=== PATIENT | female | born 1985 | race Caucasian/White ===

== ENCOUNTER → 2017-06-18 15:46 | Outpatient (CLI) | payer OTHER, SELFPAY ==
[2017-06-23 14:43] LABS: HPV Reflexed? NOT INDICATED
== END ==
PROVIDERS: Visit Provider Obstetrics & Gynecology
DX: R87.612 Low grade squamous intraepithelial lesion on cytologic smear of cervix (LGSIL) (principal)
CPT/HCPCS: 88175; G0145

== ENCOUNTER → 2017-06-24 12:06 | Outpatient (CLI) | payer OTHER, SELFPAY ==
--- NOTE | 2017-06-24 12:09 | HPBI_ITS ---
MAMMOGRAPHY - BILATERAL DIAGNOSTIC REASON FOR EXAM: Female, 31 years old. Left axillary lump. PERTINENT HISTORY: Non-contributory. TECHNIQUE: Digital bilateral breast ronal (3D mammographic acquisition) in the CC and MLO projections. 2-D mediolateral oblique (MLO) and craniocaudad (CC) views of both breasts were obtained. An exaggerated craniocaudad view of the left breast was obtained as well. CAD: Full Field Digital Mammography with Computer Added Detection was performed. COMPARISON: None. Baseline examination. FINDINGS: Breast Composition: There are scattered areas of fibroglandular density. Questionable 1 cm nodular density in the deep lateral portion of the left breast as seen on the craniocaudad view. No other significant abnormalities are identified. HPBI/DIAG MAMM W/CAD, BILAT IMPRESSION: Questionable nodular density seen in the deep lateral aspect of the left breast as described. This is only seen on the craniocaudad view. Correlation with ultrasound is recommended. ASSESSMENT CATEGORY: BIRADS Category 0: Incomplete. Need additional imaging evaluation. A letter regarding these results will be sent to the patient by the facility within 30 days. Approximately 10% of breast cancers are not detected by mammography. A normal mammogram should not delay biopsy of a clinically suspicious abnormality. Electronically Signed: Yifan Smith MD at 13:41 EST Tel [phone], Service support ,
--- NOTE | 2017-06-24 12:10 | US_ITS ---
STUDY: ULTRASOUND BREAST - LEFT REASON FOR EXAM: Female, 31 years old. Left axillary mass. TECHNIQUE: Axial and longitudinal images of the LEFT breast were performed with a high resolution ultrasound transducer. COMPARISON: Comparison is made with prior mammogram done earlier in the day. FINDINGS: LEFT Breast: No abnormality is seen at the palpable site. There are 2 lymph nodes seen inferior to the palpable area. The larger lymph node measures 2.3 cm x 2 sides by 0.7 cm. This appears to have a benign ultrasound architecture. US/Breast Limited Unilateral IMPRESSION: 2 lymph nodes are seen in the left axillary region as described. The larger measures 2.3 cm x 2 cm by 0.7 cm. ASSESSMENT CATEGORY: BIRADS Category 2: Benign. A letter regarding these results will be sent to the patient by the facility within 30 days. Electronically Signed: Yifan Smith MD at 15:00 EST Tel [phone], Service support ,
== END ==
PROVIDERS: Visit Provider Obstetrics & Gynecology
DX: N63.20 Unspecified lump in the left breast, unspecified quadrant (principal)
CPT/HCPCS: 76642; 77062; 77066; G0279

== ENCOUNTER → 2017-12-04 11:00 | Outpatient (CLI) | payer OTHER, SELFPAY ==
--- NOTE | 2017-12-04 11:04 | US_ITS ---
STUDY: ULTRASOUND BREAST - LEFT REASON FOR EXAM: Female, 31 years old. Nodular density TECHNIQUE: Axial and longitudinal images of the LEFT breast were performed with a high resolution ultrasound transducer. COMPARISON: FINDINGS: LEFT Breast: There is a simple 0.4 x 0.4 x 0.5 cm cyst at 3:00, 10 cm from the nipple. No suspicious shadowing solid lesion, architectural distortion or clustered calcifications. US/Breast Limited Unilateral IMPRESSION: Simple subcentimeter cyst. No suspicious sonographic findings ASSESSMENT CATEGORY: BIRADS Category 2: Benign. A letter regarding these results will be sent to the patient by the facility within 30 days. Electronically Signed: Eddie Jara MD at 12:41 EDT , Service support ,
== END ==
PROVIDERS: Visit Provider Surgery
DX: R92.8 Other abnormal and inconclusive findings on diagnostic imaging of breast (principal)
CPT/HCPCS: 76642

== ENCOUNTER → 2018-05-18 08:53 | Outpatient (CLI) | payer OTHER, SELFPAY ==
--- NOTE | 2018-05-18 08:56 | US_ITS ---
STUDY: ULTRASOUND BREAST - LEFT REASON FOR EXAM: Female, 32 years old. Palpable axillary lump left breast. TECHNIQUE: Axial and longitudinal images of the LEFT breast were performed with a high resolution ultrasound transducer. COMPARISON: Comparison is made with prior study dated December 04, 2017 and prior mammogram done earlier in the day. FINDINGS: LEFT Breast: There is a 4 mm x 5 mm x 5 mm cyst at the 3:00 position breast at 10 cm from the nipple. This is unchanged. US/Breast Limited Unilateral IMPRESSION: Stable examination. ASSESSMENT CATEGORY: BIRADS Category 2: Benign. A letter regarding these results will be sent to the patient by the facility within 30 days. Electronically Signed: Yifan Smith MD at 10:56 EST Tel [phone], Service support ,
--- NOTE | 2018-05-18 08:57 | BI_ITS ---
MAMMOGRAPHY - BILATERAL DIAGNOSTIC REASON FOR EXAM: Female, 32 years old. Left axillary lump. PERTINENT HISTORY: Non-contributory. TECHNIQUE: Digital bilateral breast ronal (3D mammographic acquisition) in the CC and MLO projections. 2-D mediolateral oblique (MLO) and craniocaudad (CC) views of both breasts were obtained. CAD: Full Field Digital Mammography with Computer Added Detection was performed. COMPARISON: Comparison is made with prior mammogram dated June 24, 2017. FINDINGS: Breast Composition: There are scattered areas of fibroglandular density. There are no dominant masses or suspicious calcifications. No other significant abnormalities are identified. There has been no significant change since the prior study. BI/DIAG MAMM W/CAD, BILAT IMPRESSION: Stable bilateral diagnostic mammogram. With the patient's history of a palpable abnormality in the left axillary region, correlation with ultrasound is recommended. ASSESSMENT CATEGORY: BIRADS Category 0: Incomplete. Need additional imaging evaluation. A letter regarding these results will be sent to the patient by the facility within 30 days. Approximately 10% of breast cancers are not detected by mammography. A normal mammogram should not delay biopsy of a clinically suspicious abnormality. Electronically Signed: Yifan Smith MD at 10:58 EST Tel [phone], Service support ,
== END ==
PROVIDERS: Referring Provider Surgery; Visit Provider Surgery
DX: N60.02 Solitary cyst of left breast (principal)
CPT/HCPCS: 76642; 77062; 77066; G0279

== ENCOUNTER 2021-02-04 12:17 | Emergency (ER) | payer OTHER, SELFPAY ==
[2021-02-04 12:18] VITALS: BP 148/101; PULSE 96; RESP 20; TEMP 37.5; O2SAT 96; BMI 38.9
[2021-02-04 12:23] VITALS: O2SAT 96
[2021-02-04 13:25] VITALS: PULSE 82; RESP 21
[2021-02-04] MEDS: dexAMETHasone 4 MG Tablet 6 MG PO (13:25)
[2021-02-04 13:32] VITALS: O2SAT 96
--- NOTE | 2021-02-04 13:37 | EDS_ITS ---
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 She states that she has had 5 days now of fever congestion cough and shortness of breath. She went to an urgent care where they did an outpatient Covid swab a chest x-ray and placed her on antibiotics. She states she does not have a history of lung pathology or need for supplemental oxygen. She states today she awoke and felt increased shortness of breath and therefore comes to the hospital for evaluation. [facility] Medical History (Updated 02/04/21 @ 13:[address] Justice Emmanuel, DO) Mass of left axilla Home Medications albuterol sulfate [Ventolin HFA] 2 puff INHALATION Q4H PRN PRN #8.5 g 02/04/21 [Rx Last Taken Unknown] dexamethasone [Decadron] 6 mg PO DAILY #10 tab 02/04/21 [Rx Last Taken Unknown] doxycycline hyclate 100 mg PO BID 02/04/21 [History Last Taken Unknown] promethazine-codeine 5 ml PO Q6H PRN #140 ml 02/04/21 [Rx Last Taken Unknown] Allergy/AdvReac Type Severity Reaction Status Date / Time penicillin G Allergy Intermediate Hives Verified 02/04/21 12:18 Family History Father Hypertension Grandmother Breast cancer Surgical History History of History of tonsillectomy Social History (Updated 05/26/18 @ 09:[address] Pete Urias MD) Smoking Status: Never smoker alcohol intake: never substance use type: does not use ROS ROS ED Constitutional Constitutional ED: Reports chills and fever(s) ENT ENT ED: Reports rhinorrhea and sore throat Cardiovascular Cardiovascular: Denies chest pain Respiratory/Chest Respiratory/Chest: Reports cough and dyspnea Gastrointestinal Gastrointestinal: Denies abdominal pain, diarrhea, nausea or vomiting Genitourinary Genitourinary ED: Denies dysuria Musculoskeletal Musculoskeletal: Reports myalgias Integumentary Denies rash Neurologic Neurologic: Denies headache(s) Hematologic/Lymphatic Hematologic/Lymphatic: Denies easy bleeding or easy bruising EXAM Physical Exam Const Vital Signs: 02/04/21 12:18 02/04/21 13:25 02/04/21 13:32 Temperature 99.5 F H Temperature Source Oral Pulse Rate 96 82 Respiratory Rate 20 H 21 H Respiratory Effort Normal Non-Labored Respiratory Depth Normal Respiratory Pattern Tachypnea Normal Blood Pressure 148/101 H Blood Pressure Mean 116 Pulse Ox 96 Oxygen Delivery Method Room Air Room Air Positive well nourished and well developed General Appearance ED: well developed HEENT Reports moist mucous membranes HEENT Narrative: Cobblestoning the posterior pharynx consistent with sinus drainage but no airway edema or compromise. Eyes PERRL and EOMs intact bilaterally Neck supple, no meningeal signs and no JVD Neck Narrative: Positive anterior cervical lymphadenopathy but no crepitance palpated Resp Resp Narrative: Breath sounds are diminished throughout with slight accessory muscle use. There is also diffuse expiratory wheezes noted but no nasal flaring or retractions Cardio regular rate and regular rhythm GI non-tender and non-distended Auscultation: normoactive bowel sounds Palpation: soft Extremity normal to inspection Extremity Narrative: No asymmetric edema no pitting edema negative Homans' sign bilaterally Neuro oriented x3 and CN's II-XII intact bilaterally Sensorium / Orientation: alert Psych mental status grossly normal Skin no rashes or lesions noted Lesions: no lesions Rashes: no rashes MDM MDM MDM Narrative Medical decision making narrative: Patient presented the ER with a low-grade temperature but otherwise was satting in the mid 90s on room air and had no overt signs of respiratory distress. She is already had a Covid swab obtained as well as an outpatient chest x-ray and currently is on antibiotic. Therefore this time I feel there is no need for repeat Covid testing or chest x-ray. Patient was given albuterol inhaler and Decadron secondary to concern that her symptoms are from Covid. On reevaluation she does report feeling better and remains with a pulse ox in the mid 90s. Therefore patient will be discharged at this time with symptomatic medications as she does not have physical exam findings or vital sign derangements to suggest respiratory failure Discharge Plan Triage Chief Complaint: Shortness of Breath ED Provider: Justice Emmanuel Dx/Rx/DC Orders Clinical Impression: Viral upper respiratory illness, Dyspnea Instructions: Coronavirus Disease 2019 (COVID-19): Caring for Yourself or Others, ED Dyspnea Prescriptions: New albuterol sulfate [Ventolin HFA] 90 mcg/actuation HFA aerosol inhaler 2 puff inhalation Q4H PRN PRN (Reason: Wheezing) Qty: 8.5 RF: 0 dexamethasone [Decadron] 6 mg tablet 6 mg PO DAILY Qty: 10 RF: 0 promethazine-codeine 6.25-10 mg/5 mL syrup 5 ml PO Q6H PRN (Reason: cough) Qty: 140 RF: 0 No Action doxycycline hyclate 100 mg tablet 100 mg PO BID RF: 0 Primary Care Provider: Care Physician,No Primary Referrals: Marilyn Means MD [STAFF PHYSICIAN] - 3-5 Days if not improving Care Physician,No Primary [Primary Care Provider] - Disposition Disposition: Home, Self Care
== END 2021-02-04 14:12 | disposition home or self-care (01) ==
PROVIDERS: Emergency Provider Emergency Medicine
DX: J06.9 Acute upper respiratory infection, unspecified (principal)
CPT/HCPCS: 94640; 99283

== ENCOUNTER 2021-06-07 20:34 | Emergency (ER) | payer OTHER, SELFPAY ==
[2021-06-07 20:34] VITALS: BP 212/117; PULSE 99; RESP 18; TEMP 36.1; O2SAT 100; BMI 41.1
[2021-06-07 21:07] VITALS: BP 157/104; PULSE 98; RESP 18; O2SAT 98
--- NOTE | 2021-06-07 21:16 | EKG12_ITS ---
Test Reason : CP Blood Pressure : / mmHG Vent. Rate : 075 BPM Atrial Rate : 075 BPM P-R Int : 148 ms QRS Dur : 082 ms QT Int : 418 ms P-R-T Axes : 046 026 043 degrees QTc Int : 466 ms Sinus rhythm with marked sinus arrhythmia Otherwise normal ECG Confirmed by ZARA MCKOY, MOE ([id number]), tape editor SAMI AL ([id number]) on 06/11/2021 10:50:06 AM Referred By: REJI Confirmed By:MOE ZUÑIGA MD
--- NOTE | 2021-06-07 21:18 | ED.RN ---
NO OLD EKGS ON FILE
--- NOTE | 2021-06-07 21:20 | RAD_ITS ---
INDICATION: chest pain EXAMINATION/TECHNIQUE: X-RAY - XR Chest 1 View COMPARISON: None. FINDINGS: LINES/DEVICES: None. LUNGS: Symmetric normal lung volumes. No airspace opacity or abnormal interstitial pattern. No nodule or mass. No pleural effusion or pneumothorax. MEDIASTINUM AND CARDIOVASCULAR STRUCTURES: Normal size and contour of the cardiomediastinal silhouette. No evidence of pulmonary vascular congestion. BONES AND SOFT TISSUES: No abnormality within limits of the exam. RAD/Chest 1 View (Portable) IMPRESSION: 1. No radiographic evidence of acute cardiopulmonary disease. Electronically Signed: Ermias Kennedy DO at 21:52 EST ,
--- NOTE | 2021-06-07 21:27 | CM.ED ---
W Note Referral Source: Case Find Referral Reason: No PCP SW met with patient and provided patient with [facility] Healthcare Provider List. SW encouraged patient to obtain PCP for regular ongoing medical treatment. Plan:[facility] Healthcare Provider List provided to patient Nancy SEGURA
[2021-06-07 21:40] LABS: Absolute Lymphocyte Count 3.27 X10^3/uL (0.83-4.51); Basophil# 0.06 X10^3/uL; Basophil% 0.6 % (0-1); Eosinophils% 1.9 % (0-5); Hematocrit 42.7 % (37-47); Hemoglobin 14.7 g/dL (12.0-15.0); Lymphocyte # 3.27 X10^3/ul (0.83-4.51); Lymphocyte % 31.8 % (19-41); Mean Corp Hgb Conc 34.4 g/dL (32-36); Mean Corpuscular Hgb 29.6 pg (27.0-32.0); Mean Corpuscular Volume 86.1 fL (81-99); Mean Platelet Vol. 9.6 fl (6.2-12.0); Monocyte# 0.71 X10^3/uL; Monocyte% 6.9 % (0-10); NRBC Flagged by Analyzer 0 % (0-5); Neutrophil % 58.4 % (47-70); Platelet Count 221 K/mm3 (150-450); RBC Distribution Width CV 12.8 % (11.6-14.6); RBC Distribution Width SD 39.9 fl (35.1-43.9); Red Blood Count 4.96 M/mm3 (4.2-5.4); White Blood Count 10.3 K/mm3 (4.4-11.0)
--- NOTE | 2021-06-07 21:52 | EDS_ITS ---
HPI History of Present Illness Chief Complaint: Hypertension Narrative Narrative: 35-year-old female with history of high blood pressure after about 9 years ago presenting with high blood pressure and feeling generally unwell. She states she had some [employer] [place] pizza earlier today and after that she started to have dyspepsia and burning. She describes some pressure as well. She states that she felt a little bit lightheaded after this. This lasted for about an hour. She took aspirin at that time and then aspirin again before coming to the emergency room. She denies any personal cardiac history. She states that the urgent care told her she had asthma when she was diagnosed with COVID-19 and put her on antibiotics and steroids, however she has no history of asthma. This was somewhat distantly however the patient notes that her blood pressures been up a little bit since then and she has never quite recovered. She has not made contact with a primary care provider and she utilizes the urgent care periodically as needed. Patient does relate that she has a family history of cardiac disease and 2 relatives with MIs in their 40s. [facility] Medical History Mass of left axilla Home Medications amlodipine 5 mg PO DAILY #60 tab 06/08/21 [Rx Last Taken Unknown] Allergy/AdvReac Type Severity Reaction Status Date / Time penicillin G Allergy Intermediate Hives Verified 06/07/21 20:36 Family History Father Hypertension Grandmother Breast cancer Surgical History History of History of tonsillectomy Social History Smoking Status: Never smoker alcohol intake: never substance use type: does not use ROS ROS ED Constitutional Constitutional ED: Denies chills, fever(s) or sweats Eyes Eyes: Denies blurry vision or change in vision ENT ENT ED: Denies ear pain, rhinorrhea or sore throat Cardiovascular Cardiovascular: Reports chest pain; Denies palpitations or racing heartbeat Respiratory/Chest Respiratory/Chest: Denies cough, dyspnea or sputum Gastrointestinal Gastrointestinal: Denies abdominal pain, constipation, diarrhea or vomiting Genitourinary Genitourinary ED: Denies dysuria, hematuria or urinary frequency Musculoskeletal Musculoskeletal: Denies arthralgias, myalgias or neck pain Integumentary Denies abscess, Abrasions or rash Neurologic Neurologic: Denies headache(s), paresthesias or weakness Psychiatric Psychiatric: Denies anxiety, depression, suicidal ideation or suicidal thoughts Endocrine Endocrinology: Denies polydipsia or polyuria EXAM Physical Exam Const Vital Signs: 06/07/21 20:34 06/07/21 21:07 06/07/21 21:09 Temperature 97 F L Temperature Source Temporal Pulse Rate 99 98 Respiratory Rate 18 18 Respiratory Effort Normal Blood Pressure 212/117 H 157/104 H Blood Pressure Mean 148 121 Pulse Ox 100 98 Oxygen Delivery Method Room Air Oxygen Flow Rate (L/min) 06/07/21 21:21 06/07/21 23:47 Temperature Temperature Source Pulse Rate 81 Respiratory Rate 16 Respiratory Effort Blood Pressure 159/87 H Blood Pressure Mean 111 Pulse Ox 99 Oxygen Delivery Method Room Air Room Air Oxygen Flow Rate (L/min) 98 Positive well nourished and oriented x3 General Appearance ED: Negative for pallor HEENT Reports normocephalic, head/scalp atraumatic and moist mucous membranes Eyes PERRL and EOMs intact bilaterally Neck no lymphadenopathy and supple Chest Wall inspection of chest normal and palpation of chest normal Resp normal respiratory effort and clear to auscultation bilaterally Auscultation: Negative for rales, rhonchi or wheezes Cardio regular rate and regular rhythm GI Palpation: soft Narrative: Deferred Extremity normal to inspection General Extremety ED: Negative for edema or tenderness General Extremity: Negative for edema Neuro oriented x3 and CN's II-XII intact bilaterally Sensorium / Orientation: alert Motor Exam: strength 5/5 throughout Psych mental status grossly normal Attitude: No agitated Skin no rashes or lesions noted and no wounds General Skin Exam: Negative for jaundice or pallor MDM MDM MDM Narrative Medical decision making narrative: Patient presenting with elevated blood pressure and fatigue. Patient states he is having some intermittent chest pain as well. He describes this pressure. EKG on my interpretation shows a sinus rhythm with a ventricular rate of 75 bpm without sign of ischemic change. Chest x-ray on my interpretation shows no acute cardiopulmonary process and radiologist does agree. Patient is PERC negative. Blood work is obtained and CBC and BMP are within normal limits. High-sensitivity troponin is 4 initially. Delta troponin is 4. I feel this does rule out ACS. Serum hCG is negative. On reevaluation the patient's blood pressure has spontaneously improved to 159/87. She currently feels well. I had a long discussion with her about starting medications from the ER and says she does not have follow-up currently scheduled I will start her on amlodipine 5 mg p.o. daily. She is to keep a diary of her blood pressures and monitor this. I told her for the next 5 to 7 days to monitor and see if her blood pressure is improving. If is not significantly improving I counseled her that she can double her amlodipine to 10 mg p.o. daily. I did equal opportunity counselor her that we want to slowly get her blood pressure down over several days and try to get it is close to 120/80 as we can. I did equal opportunity counselor her for blood pressure medicines needs to be doubled and she has low blood pressure she should go back to the initial 5 mg until she follows up with her primary physician. Patient can always understanding well instructions. Patient given first dose of alendronate in the ER. Impression: 1. Hypertension 2. Chest pain noncardiac Lab Data Labs: Laboratory Results - last 24 hr 06/07/21 06/07/21 06/07/21 21:20 21:20 21:20 WBC 10.3 RBC 4.96 Hgb 14.7 Hct 42.7 MCV 86.1 MCH 29.6 MCHC 34.4 RDW Std Deviation 39.9 RDW Coeff of Becky 12.8 Plt Count 221 MPV 9.6 Immature Gran % (Auto) 0.400 Neut % (Auto) 58.4 Lymph % (Auto) 31.8 Jessamine % (Auto) 6.9 Eos % (Auto) 1.9 Baso % (Auto) 0.6 Absolute Neuts (auto) 6.0 Absolute Lymphs (auto) 3.27 Nucleated RBC % 0 Sodium 139 Potassium 3.3 L Chloride 104 Carbon Dioxide 27.0 Anion Gap 8 BUN 10 Creatinine 0.74 Estim Creat Clear Calc 93.37 Est GFR (MDRD) Af Amer 117 Est GFR (MDRD) Non-Af 96 BUN/Creatinine Ratio 13.6 Glucose 90 Calcium 9.5 Troponin I High Sens 4 Serum , Qual NEGATIVE 06/07/21 23:15 WBC RBC Hgb Hct MCV MCH MCHC RDW Std Deviation RDW Coeff of Becky Plt Count MPV Immature Gran % (Auto) Neut % (Auto) Lymph % (Auto) Jessamine % (Auto) Eos % (Auto) Baso % (Auto) Absolute Neuts (auto) Absolute Lymphs (auto) Nucleated RBC % Sodium Potassium Chloride Carbon Dioxide Anion Gap BUN Creatinine Estim Creat Clear Calc Est GFR (MDRD) Af Amer Est GFR (MDRD) Non-Af BUN/Creatinine Ratio Glucose Calcium Troponin I High Sens 4 Serum , Qual Radiography Diagnostic Testing: Clinical Impression(s) from Imaging Studies Chest X-Ray 06/07/21 21:20 IMPRESSION: 1. No radiographic evidence of acute cardiopulmonary disease. Electronically Signed: Ermias Kennedy DO at 21:52 EST , Discharge Plan Triage Chief Complaint: Hypertension ED Provider: Lavell Cardoso Dx/Rx/DC Orders Instructions: ED Hypertension New Begin Treatment Prescriptions: New amlodipine 5 mg tablet 5 mg PO DAILY Qty: 60 RF: 0 Primary Care Provider: Care Physician,No Primary Referrals: Fast,Minerva, DO [NON-STAFF] - As soon as possible Care Physician,No Primary [Primary Care Provider] - Disposition Disposition: Home, Self Care
[2021-06-07 21:57] LABS: Internal QC Validated? YES +Cl - CLEAR BKGD; Pregnancy, Serum, hCG Quali. NEGATIVE Negative
[2021-06-07 22:01] LABS: Anion Gap 8 (5-15); BUN 10 mg/dL (7-18); BUN/Creat Ratio 13.6 RATIO (10-20); Calcium,Total 9.5 mg/dL (8.5-10.1); Chloride 104 mmol/L (98-107); Creatinine, Serum 0.74 mg/dL (0.55-1.02); EST Glomerular Filtration Rate 96 mL/min (>60); Est Glom Filt Rate - Afr Amer 117 mL/min (>60); Estimated Creatinine Clearance 93.37 ml/min; Glucose 90 mg/dL (74-106); Potassium 3.3 mmol/L (3.5-5.1); Sodium Level 139 mmol/L (136-145); Troponin-I HS 4 pg/mL (3.0-54.0)
[2021-06-07 23:47] VITALS: BP 159/87; PULSE 81; RESP 16; O2SAT 99
[2021-06-07 23:51] LABS: Troponin-I HS 4 pg/mL (3.0-54.0)
[2021-06-08] MEDS: amLODIPine 5 MG Tablet PO (00:07)
[2021-06-08 00:08] VITALS: BP 149/87; PULSE 89; RESP 23; TEMP 36.6; O2SAT 97
--- NOTE | 2021-06-08 13:00 | CASEMGMT ---
RN GAVINO ED follow-up RN CM placed call to patient's telephone number listed on demographics with no answer. Voicemail left with call back information requesting return call. BRIGETTE Cardoza CM
== END 2021-06-08 00:10 | disposition home or self-care (01) ==
PROVIDERS: Emergency Provider Student in an Organized Health Care Education/Training Program; Visit Provider Student in an Organized Health Care Education/Training Program
DX: I10 Essential (primary) hypertension (principal); R07.89 Other chest pain
CPT/HCPCS: 71045; 80048; 84484; 84703; 85025; 93005; 99285; A4216

== ENCOUNTER → 2021-09-26 | Outpatient (CLI) | payer OTHER, SELFPAY ==
[2021-09-26 12:40] LABS: Hemoglobin A1c 5.1 % (3.8-5.6)
[2021-09-26 12:51] LABS: Estradiol 49.5 pg/mL; Follicle Stimulating Hormone 5.2 mIU/mL; Prolactin 10.9 ng/mL
[2021-09-27 16:34] LABS: Sex Hormone-binding Globulin 25.5 nmol/L (24.6-122.0)
[2021-10-03 10:29] LABS: 17-Hydroxyprogesterone 12 ng/dL (.)
== END | disposition home or self-care (01) ==
PROVIDERS: Visit Provider Obstetrics & Gynecology
DX: N91.5 Oligomenorrhea, unspecified (principal)
CPT/HCPCS: 36415; 82533; 82627; 82670; 83001; 83002; 83036; 83498; 84146; 84270; 84403; 82626

== ENCOUNTER → 2021-10-02 | Outpatient (CLI) | payer OTHER, SELFPAY ==
[2021-10-02 11:09] LABS: Glucose 75GTT - 30 minutes 134 mg/dL (100-160)
[2021-10-02 11:10] LABS: Glucose 75GTT - 60 minutes 148 mg/dL (100-160)
[2021-10-02 11:19] LABS: Glucose 75GTT - 120 minutes 136 mg/dL (70-140)
[2021-10-02 11:20] LABS: Glucose 75GTT - Fasting 87 mg/dL (70-99)
[2021-10-02 11:28] LABS: Insulin 75GTT - 120 min 135.7 mU/L (Not Estab.)
[2021-10-02 11:30] LABS: Insulin 75GTT - 60 min 141.3 mU/L (Not Estab)
[2021-10-02 11:30] LABS: Insulin 75GTT - 30 MIN 129.7 mU/L (Not Estab.)
[2021-10-02 12:32] LABS: Insulin 75GTT - Fasting 21.3 mU/L (2.6-37.6)
== END | disposition home or self-care (01) ==
LOC: WOBLAB 08:39
PROVIDERS: Visit Provider Obstetrics & Gynecology
DX: N92.6 Irregular menstruation, unspecified (principal); E28.9 Ovarian dysfunction, unspecified
CPT/HCPCS: 36415; 82951; 82952; 83525

== ENCOUNTER → 2022-12-03 | Outpatient (CLI) | payer OTHER, SELFPAY ==
[2022-12-03 12:18] LABS: Absolute Lymphocyte Count 2.53 X10^3/uL (0.83-4.51); Absolute Neutrophil Count 3.5 X10^3/uL (2.0-7.7); Basophil# 0.07 X10^3/uL; Eosinophil# 0.22 X10^3/uL; Eosinophils% 3.2 % (0-5); Hematocrit 44.1 % (37-47); Hemoglobin 13.9 g/dL (12.0-15.0); Lymphocyte # 2.53 X10^3/ul (0.83-4.51); Lymphocyte % 37.2 % (19-41); Mean Corp Hgb Conc 31.5 g/dL (32-36); Mean Corpuscular Volume 88.7 fL (81-99); Mean Platelet Vol. 10.4 fl (6.2-12.0); Monocyte# 0.52 X10^3/uL; Monocyte% 7.6 % (0-10); NRBC Flagged by Analyzer 0 % (0-5); Neutrophil # 3.45 X10^3/uL (2.7-7.7); Neutrophil % 50.9 % (47-70); Platelet Count 264 K/mm3 (150-450); RBC Distribution Width CV 13.2 % (11.6-14.6); RBC Distribution Width SD 42.6 fl (35.1-43.9); Red Blood Count 4.97 M/mm3 (4.2-5.4); White Blood Count 6.8 K/mm3 (4.4-11.0)
[2022-12-03 12:27] LABS: Progesterone Level 1.02 ng/mL (See Comment)
[2022-12-03 12:28] LABS: hCG Titer Quant., Serum < 1 mIU/mL (1-3)
[2022-12-03 12:31] LABS: Hemoglobin A1c 5.2 % (3.8-5.6)
[2022-12-03 12:33] LABS: Estradiol 34.9 pg/mL; Follicle Stimulating Hormone 7.4 mIU/mL; Luteinizing Hormone 4.5 mIU/mL; Prolactin 13.5 ng/mL; T4 Free Direct 0.92 ng/dL (0.76-1.46); Thyroid Stim Hormone (TSH) 1.23 uIU/mL (0.358-3.74)
[2022-12-08 13:07] LABS: Testosterone, % Free 2.71 % (0.50-2.80); Testosterone, Free 1.33 ng/dL (0.10-0.85); Testosterone, Total 49 ng/dL (8-60)
== END | disposition home or self-care (01) ==
PROVIDERS: Visit Provider Nurse Practitioner Women's Health
DX: N97.9 Female infertility, unspecified (principal)
CPT/HCPCS: 36415; 82670; 83001; 83002; 83036; 84144; 84146; 84402; 84403; 84439; 84443; 84702; 85025

== ENCOUNTER → 2025-03-29 | Outpatient (CLI) | payer OTHER, SELFPAY ==
--- OUTSIDE RECORDS SUMMARY | 2025-03-29 07:46 | XMS RPT_ITS | CCD ---
Author Organization [facility] Inform ion Partnership [facility] [place] [facility] Care Team Providers Care [facility] Director Name Role Phone DAVID MORTON DO Attending Unavailable DAVID MORTON DO Primary Care Unavailable DAVID MORTON DO Admitting Unavailable Angelina White Attending Unavailable Care Physician, No Primary Primary Care Unava ilable Unavailable Primary Care Provider Unavailabl e Unavailable Primary Care Provider Unavailaristides e MARILYN SUMMERS Attending Unavailable Allergies Allergy Classification Reported Allergen(s) Allergy Type Date of Onset Reaction(s) Facility (2 sources) Penicillin G Drug Allergy 2 [facility] Work Phone: (1 source) Penicillin Drug Allergy 2 [facility] Repository (5 sources) Penicillins; Translations: [PENICILLINS] Drug Intolerance 1 [facility] Work Phone: Medications Completed/Discontinued Medications Medication Drug Class(es) Dates Sig (Normalized) Sig (Original) amLODIPine 5 mg oral tablet (3 sources) Dihydropyridine Calcium Channel Fauzia Start: 06-08-19 22 End: 04-09-20 23 amLODIPine (NORVASC) 5 mg tablet Take by mouth. 0 06/08/2021 04/09/2023 Discontinued (Other) Comment on above: Take by mouth. clomiPHENE citrate 50 mg oral tablet (1 source) Estrogen Agonist/Antagonist Start: 01-09-20 23 End: 04-09-20 23 CLOMID 50 mg tablet TAKE 1 TABLET BY MOUTH DAILY CYCLE DAY 3-7 0 01/08/2023 04/09/2023 Discontinued (Other) Comment on above: TAKE 1 TABLET BY HERBERTH TH DAILY CYCLE DAY 3-7 letrozole 2.5 mg oral tablet (2 sources) Aromatase Inhibitor Start: 04-09-20 23 End: 03-09-20 24 letrozole (FEMARA) 2.5 mg tablet Take 1 tablet by mouth once daily. cycle day 3-7 5 tablet 2 04/09/2023 03/09/2024 Discontinued Comment on above: Take 1 tablet by herberth th once daily. cycle day 3-7 medroxyPROGESTERone acetate 10 mg oral tablet (2 sources) Progestin Start: 04-09-20 End: 03-09-20 take 1 tablet by mouth once daily medroxyPROGESTERone (PROVERA) 10 mg tablet Take 1 tablet by mouth once daily. 10 tablet 04/09/2023 03/09/2024 Discontinued Comment on above: Take 1 tablet by herberth th once daily. 24 hr metFORMIN hydrochloride 500 mg extended release oral tablet (2 sources) Biguanide Start: 04-09-20 End: 03-09-20 take 2 tablets by mouth once daily at breakfast metFORMIN ER (GLUCOPHAGE XR) 500 mg 24 hr tablet Take 2 tablets by mouth daily with breakfast. 60 tablet 3 04/09/2023 03/09/2024 Discontinued Comment on above: Take 2 tablets by mo uth daily with breakfast. Problems Problem Classification Problem Date Documented Da te Episodic/Chronic Conditions associated with dizziness or vertigo (1 source) Dizziness; Translations: [Dizziness and giddiness] 07-14-2024 Episodic Contraceptive and procreative management (2 sources) Patient encounter status; Translations: [Encounter for other general counseling and advice on procreation] 04-16-2023 Episodic Female infertility (1 source) Female infertility, unspecified; Translations: [Female infertility, unspecified] Onset: 12-04-2022 Chronic Menstrual disorders (1 source) Irregular periods; Translations: [Irregular menstruation, unspecified] 04-09-2023 Chronic Other lower respiratory disease (2 sources) Dyspnea; Translations: [Dyspnea, unspecified] Episodic Other screening for suspected conditions (not mental disorders or infectious disease) (1 source) Cancer cervix screening status; Translations: [Encounter for screening for malignant neoplasm of cervix] 03-09-2024 Episodic Other upper respiratory infections (2 sources) Viral upper respiratory tract infection; Translations: [Acute upper respiratory infection, unspecified] Episodic Results Test Name Value Interpretation Reference Range Facility CNOVon 03-10-2025 CNOV Office Visit (OBGYWM) -------- TYESHA LE ([id number]) 1985 F Date Time Provider Department 03/10/25 10:00 AM MARILYN SUMMERS During your visit today, we recorded the following information about you: Blood pressure Weight Height Last Period 140/89 109.8 kg 1.645 m 02/17/25 Marilyn Summers APRN.RAILROAD SIGNAL AND SWITCH OPERATOR 03/10/2025 10:52 AM Signed Tyesha is a 39 year old who presents for an annual gynecologic exam without complaints. Menses: cycles every 35 days and 7 days of moderate flow. Bleeding amount bothersome: No Bleeding between periods: No Period symptoms: Breast tenderness Contraception: none - accepting if occurs, considering vasectomy HPV vaccine: No Last Pap: 03/09/2024 normal HPV: 03/09/2024 normal History of abnormal pap: Yes [place] 2012 and 2013 with no other procedures and normal Paps since. Last mammogram: around 2015 left breast lipoma, still present Sexually active: Yes Time with current partner: 14 years Number of lifetime partners: 1 History of STDS: HPV Patient concerns for STD exposure: No Pain with intercourse: No Postcoital bleeding: No Bothersome pelvic pain: No Documentation from previous visit of 03/09/2024 was copied and pasted, documentation has been reviewed and edited as necessary for today's visit. OB History Gravida1 Para1 Term1 Preterm0 AB0 Living1 SAB0 IAB0 Ectopic0 Multiple0 Live Births1 Paralegals History LMP: 02/17/2025, Having periods Age at Menarche: 12 Age at First : Age at Menopause: Paralegals History Comments: Sexual Activity: Yes; Male Contraception: None Menstrual Tracking History Flowsheet Row Office Visit from 03/10/2025 in OB/Gynecology Period Cycle (Days) 38 Period Duration (Days) 7 Menstrual Flow Moderate PAST MEDICAL HISTORY Diagnosis Date Abnormal Pap smear of cervix in 20s PAST SURGICAL HISTORY Procedure Laterality Date DELIVERY ONLY 07/01/2012 COLPOSCOPY 2014 COLPOSCOPY CERVIX VAG LOOP ELTRD BX CERVIX 2013 TONSILLECTOMY AND ADENOIDECTOMY FAMILY HISTORY Problem Relation Age of Onset No Known Problems Mother Hypertension Father No Known Problems Brother Dementia Maternal Grandmother Heart Attack Maternal Grandfather Diabetes Maternal Grandfather Breast Cancer Paternal Grandmother 45 Heart Attack Paternal Grandfather SOCIAL HISTORY Social History Tobacco Use Smoking status: Never Smokeless tobacco: Never Vaping Use Vaping status: Never Used Substance Use Topics Alcohol use: Not Currently Drug use: Never REVIEW OF SYSTEMS Abdomen: No abdominal pain, nausea, vomiting, diarrhea, or constipation. No bloating, early satiety, indigestion, or increased flatulence. Bladder: No dysuria, gross hematuria, urinary frequency, urinary urgency, or incontinence. Breast: No breast lumps, nipple d/c, overlying skin changes, redness or skin retraction. Allergies and current medication updated:Yes SENSITIVE EXAM: The sensitive examination was discussed with the Patient or Patient's Authorized Jumbo Operator. As applicable, any other physician, advance practice provider, medical student, or other health professional student that will be observing or involved in the sensitive examination for educational or training purposes was discussed with the Patient or Authorized Jumbo Operator. The Patient or Authorized Jumbo Operator has agreed to proceed with the sensitive examination. (Sensitive examination includes inspection and/or palpation of the breasts, pelvis, prostate and anorectal regions). EXAM: BP 140/89 Ht 5' 4.75 (1.65m) Wt 242 lb (109.8kg) LMP 02/17/2025 BMI 40.57 kg/(m2). GENERAL: pleasant, female in no apparent distress HEENT: Normocephalic, atraumatic, mucus membranes moist, and no lesions NECK: Supple, full range of motion, no adenopathy, and thyroid normal DERMATOLOGY: Normal, without lesions, non-icteric, and non-hirsute BREAST: soft, non-tender, symmetric, no dominant mass, normal nipple-areolar complex, no lymphadenopathy, and no nipple discharge. Dense tissue palpated bilaterally to lower breasts. Small stable lipoma left axilla. CHEST: Clear to auscultation and Normal inspiratory effort ABDOMEN: soft, non-tender, and no masses PELVIC: external genitalia normal, normal Bartholin's glands, urethra, [place]'s glands, no vulvar lesions, no cervical lesions, physiologic discharge present, normal appearing perineal body and perianal region BIMANUAL: uterus normal size, shape and consistency, no adnexal masses, and non-tender RECTOVAGINAL: deferred. NEURO: alert and oriented x3,exam grossly non-focal EXTREMITIES: normal ASSESSMENT/PLAN: 1) Health maintenance: Pap/HPV up to date. Mammogram starting age 40. - Reviewed breast exam findings; advised monthly self-breast examination to monitor for any unilateral changes or concerning dino (more content not included)... Normal [facility] CNOVon 07-14-2024 CNOV Office Visit (UCWSTR) -------- TYESHA LE ([id number]) 1985 F Date Time Provider Department 07/14/24 8:45 AM SHELBIE JORDAN [facility] During your visit today, we recorded the following information about you: Temperature Pulse Respiration Blood pressure 98.2 degrees 63/minute 16/minute 132/82 Weight 109.4 kg Shelbie Jordan APRN.RAILROAD SIGNAL AND SWITCH OPERATOR 07/14/2024 8:51 AM Signed Patient came in with complaints of dizziness headache and a weird feeling in her right ear but not necessarily pain. Did look in patient's ears they are within normal limits. Patient said she was driving on her way to work this morning and felt like she was going to pass out. Patient said she took Tylenol and this is helping with the headache a little bit. Patient has no other sick symptoms. Due to patient feeling like she was going to pass out patient's being referred to the ER. Patient said her will take her. Patient agreeable to care plan. Allergies As of Date: 07/14/2024 Noted Allergy Reaction PENICILLINS 02/03/2021 4 - Hives Date Reviewed: 07/14/2024 Reviewed by: Jen Umanzor LPN - Fully Assessed Reason for Visit: Ear Pain [817] Cmt: Right ear pain, dizzy and WILKINS - symptoms started at 1:00 am Primary Visit Diagnosis:Dizzines s [R42] Problem List As Of Date: 07/14/2024 (None) Encounter Status:Closed by SHELBIE JORDAN on 07/14/24 Normal [facility] Testosterone, Total / Freeon 12-08-2022 TESTOSTERONE, F 1.33 ng/dL High 0.10-0.85 [facility] Comment on above: Order Comment: N Performed By: #### L 509.4001, L3300.1750, L501.9520, L700.8000, L100.0100, L506.0400, L3100.5055, L3100.5310, L501.9985, L3100.5420 #### [facility] [address] [facility] [place], [place], [address] (871) TESTOSTERONE, T 49 ng/dL Normal 8-60 [facility] Comment on above: Order Comment: N Performed By: #### L 509.4001, L3300.1750, L501.9520, L700.8000, L100.0100, L506.0400, L3100.5055, L3100.5310, L501.9985, L3100.5420 #### [facility] [address] [facility] [place], [place], [id number] (189) TESTOSTERONE,%F 2.71 Normal 0.50-2.80 [facility] Comment on above: Order Comment: N Result Comment: Perf ormed at: [facility] [address] [id number] [place] [place] Pruner: Gilberto Godoy PhD, Phone: [phone] Performed at: - [address] [id number] [place] [place] Pr[employer]er: Lucho Collado MD, Phone: [phone] Performed By: #### L 509.4001, L3300.1750, L501.9520, L700.8000, L100.0100, L506.0400, L3100.5055, L3100.5310, L501.9985, L3100.5420 #### [facility] [address] [place], [address] CBC W/Diff, Automatedon 07-2 -2022 Absolute Lymph 2.53 X10 3/uL Normal 0.83-4.51 [facility] Comment on above: Performed By: #### L 509.4001, L3300.1750, L501.9520, L700.8000, L100.0100, L506.0400, L3100.5055, L3100.5310, L501.9985, L3100.5420 #### [facility] [address] [place], [address] Absolute Neut 3.5 X10 3/uL Normal 2.0-7.7 [facility] Comment on above: Performed By: #### L 509.4001, L3300.1750, L501.9520, L700.8000, L100.0100, L506.0400, L3100.5055, L3100.5310, L501.9985, L3100.5420 #### [facility] [address] [place], [address] Basophils/100 WBC (Bld) 1.0 % Normal 0-1 [facility] Comment on above: Performed By: #### L 509.4001, L3300.1750, L501.9520, L700.8000, L100.0100, L506.0400, L3100.5055, L3100.5310, L501.9985, L3100.5420 #### [facility] [address] [place], [address] Eosinophils/100 WBC (Bld) 3.2 % Normal 0-5 [facility] Comment on above: Performed By: #### L 509.4001, L3300.1750, L501.9520, L700.8000, L100.0100, L506.0400, L3100.5055, L3100.5310, L501.9985, L3100.5420 #### [facility] [address] [place], [address] Erythrocyte distribution width (RBC) [Ratio] 13.2 % Normal 11.6-14.6 [facility] Comment on above: Performed By: #### L 509.4001, L3300.1750, L501.9520, L700.8000, L100.0100, L506.0400, L3100.5055, L3100.5310, L501.9985, L3100.5420 #### [facility] [address] [place], [address] Hematocrit (Bld) [Volume fraction] 44.1 % Normal 37-47 [facility] Comment on above: Performed By: #### L 509.4001, L3300.1750, L501.9520, L700.8000, L100.0100, L506.0400, L3100.5055, L3100.5310, L501.9985, L3100.5420 #### [facility] [address] [facility] [place], [place], [id number] (664) Hemoglobin (Bld) [Mass/Vol] 13.9 g/dL Normal 12.0-15.0 [facility] Comment on above: Performed By: #### L 509.4001, L3300.1750, L501.9520, L700.8000, L100.0100, L506.0400, L3100.5055, L3100.5310, L501.9985, L3100.5420 #### [facility] [address] [facility] [place], [place], [id number] IG% 0.100 Normal 0.0-0.9 [facility] Comment on above: Result Comment: IG% - Immature Granulocytes (promyelocytes, myelocytes and metamyelocytes) > 1% indicates that a LEFT SHIFT is Present. Performed By: #### L 509.4001, L3300.1750, L501.9520, L700.8000, L100.0100, L506.0400, L3100.5055, L3100.5310, L501.9985, L3100.5420 #### [facility] [address] [place], [address] Lymphocytes/100 WBC (Bld) 37.2 % Normal 19-41 [facility] Comment on above: Performed By: #### L 509.4001, L3300.1750, L501.9520, L700.8000, L100.0100, L506.0400, L3100.5055, L3100.5310, L501.9985, L3100.5420 #### [facility] [address] [facility] [place], [address] MCH (RBC) [Entitic mass] 28.0 pg Normal 27.0-32.0 [facility] Comment on above: Performed By: #### L 509.4001, L3300.1750, L501.9520, L700.8000, L100.0100, L506.0400, L3100.5055, L3100.5310, L501.9985, L3100.5420 #### [facility] [address] [facility] [place], [address] MCHC (RBC) [Mass/Vol] 31.5 g/dL Low 32-[address] [facility] Comment on above: Performed By: #### L 509.4001, L3300.1750, L501.9520, L700.8000, L100.0100, L506.0400, L3100.5055, L3100.5310, L501.9985, L3100.5420 #### [facility] [address] [place], [address] MCV (RBC) [Entitic vol] 88.7 fL Normal 81-99 [facility] Comment on above: Performed By: #### L 509.4001, L3300.1750, L501.9520, L700.8000, L100.0100, L506.0400, L3100.5055, L3100.5310, L501.9985, L3100.5420 #### [facility] [address] [facility] [place], [address] ([phone] Monocytes/100 WBC (Bld) 7.6 % Normal 0-10 [facility] Comment on above: Performed By: #### L 509.4001, L3300.1750, L501.9520, L700.8000, L100.0100, L506.0400, L3100.5055, L3100.5310, L501.9985, L3100.5420 #### [facility] [address] [facility] [place], [address] (287) Neutrophils/100 WBC (Bld) 50.9 % Normal 47-70 [facility] Comment on above: Performed By: #### L 509.4001, L3300.1750, L501.9520, L700.8000, L100.0100, L506.0400, L3100.5055, L3100.5310, L501.9985, L3100.5420 #### [facility] [address] [facility] [place], [address] (978) Nucleated RBC (Bld) [#/Vol] 0 10*3/uL Normal 0-5 [facility] Comment on above: Performed By: #### L 509.4001, L3300.1750, L501.9520, L700.8000, L100.0100, L506.0400, L3100.5055, L3100.5310, L501.9985, L3100.5420 #### [facility] [address] [facility] [place], [address] (767) Platelet mean volume (Bld) [Entitic vol] 10.4 fL Normal 6.2-12.0 [facility] Comment on above: Performed By: #### L 509.4001, L3300.1750, L501.9520, L700.8000, L100.0100, L506.0400, L3100.5055, L3100.5310, L501.9985, L3100.5420 #### [facility] [address] [place], [address] Platelets (Bld) [#/Vol] 264 10*3/uL Normal 150-450 [facility] Comment on above: Performed By: #### L 509.4001, L3300.1750, L501.9520, L700.8000, L100.0100, L506.0400, L3100.5055, L3100.5310, L501.9985, L3100.5420 #### [facility] [address] [place], [place], [phone] (344) RBC (Bld) [#/Vol] 4.97 10*6/uL Normal 4.2-5.4 [facility] Comment on above: Performed By: #### L 509.4001, L3300.1750, L501.9520, L700.8000, L100.0100, L506.0400, L3100.5055, L3100.5310, L501.9985, L3100.5420 #### [facility] [address] [place], [address] RDW SD 42.6 fl Normal 35.1-43.9 [facility] Comment on above: Performed By: #### L 509.4001, L3300.1750, L501.9520, L700.8000, L100.0100, L506.0400, L3100.5055, L3100.5310, L501.9985, L3100.5420 #### [facility] [address] [place], [address] WBC (Bld) [#/Vol] 6.8 10*3/uL Normal 4.4-11.0 [facility] Comment on above: Performed By: #### L 509.4001, L3300.1750, L501.9520, L700.8000, L100.0100, L506.0400, L3100.5055, L3100.5310, L501.9985, L3100.5420 #### [facility] [address] [place], [address] Estradiolon 12-03-2022 ESTRADIOL 34.9 pg/mL Normal [facility] Comment on above: Order Comment: N Result Comment: NORM AL REFERENCE RANGES FEMALE FOLLICULAR 21.4 - 164.8 pg/mL MID-CYCLE PEAK 49.9 - 367.2 pg/mL LUTEAL 40.2 - 259.0 pg/mL POST-MENOPAUSAL ON MHT <11.0 - 462.1 pg/mL NOT ON MHT <11.0 - 58.3 pg/mL MALE <11.0 - 52.5 pg/mL NOTE: [facility] HAS CONFIRMED THE DRUG FULVETRANT (FASLODEX) MAY CAUSE FALSELY ELEVATED ESTRADIOL RESULTS WHEN USING THIS TEST METHOD. IF PATIENT IS TAKING FULVESTRANT AN ALTERNATIVE METHOD SHOULD BE USED TO DETERMINE ESTRADIOL CONCENTRATION. Performed By: #### L 509.4001, L3300.1750, L501.9520, L700.8000, L100.0100, L506.0400, L3100.5055, L3100.5310, L501.9985, L3100.5420 #### [facility] [address] [place], [address] FSH and LHon 12-03-2022 FSH 7.4 mIU/mL Normal [facility] Comment on above: Order Comment: N Result Comment: NORMAL REFERENCE RANGES FEMALE FOLLICULAR 2.3 - 12.6 mIU/mL MID-CYCLE PEAK 5.2 - 17.5 mIU/mL LUTEAL 1.7 - 12.9 mIU/mL POST-MENOPAUSAL ON MHT 5.9 - 72.8 mIU/mL NOT ON MHT 12.7 - 132.2 mlU/mL MALE 0.7 - 10.8 mIU/mL Performed By: #### L 509.4001, L3300.1750, L501.9520, L700.8000, L100.0100, L506.0400, L3100.5055, L3100.5310, L501.9985, L3100.5420 #### [facility] [address] [place], [place], [id number] LH 4.5 mIU/mL Normal [facility] Comment on above: Order Comment: N Result Comment: NORMAL REFERENCE RANGES FEMALE FOLLICULAR 1.9 - 26.2 mIU/mL MID-CYCLE PEAK 22.8 - 76.1 mIU/mL LUTEAL 0.6 - 16.6 mIU/mL POST-MENOPAUSAL ON MHT 1.1 - 52.4 mIU/mL NOT ON MHT 8.6 - 61.8 mIU/mL MALE 1.2 - 10.6 mIU/mL Performed By: #### L 509.4001, L3300.1750, L501.9520, L700.8000, L100.0100, L506.0400, L3100.5055, L3100.5310, L501.9985, L3100.5420 #### [facility] [address] [place], [address] Hemoglobin A1con 12-03-2022 HbA1c (Bld) [Mass fraction] 5.2 % Normal 3.8-5.6 [facility] Comment on above: Result Comment: Norm al < 5.7 % Prediabetic 5.7 - 6.4 % Diabetic >or= 6.5 % Please note range changes. Performed By: #### L 509.4001, L3300.1750, L501.9520, L700.8000, L100.0100, L506.0400, L3100.5055, L3100.5310, L501.9985, L3100.5420 #### [facility] [address] [place], [place], [id number] Progesterone Levelon 023 Progesterone 1.02 ng/mL Normal See Comment [facility] Comment on above: Result Comment: Prog esterone Reference Table: UNITS Female: Follicular 0.15 - 1.40 ng/mL Luteal 3.34 - 25.56 ng/mL Mid-luteal 4.44 - 28.03 ng/mL Postmenopausal 0.0 - 0.73 ng/mL : 1st Trimester 11.22 - 90.00 ng/mL 2nd Trimester 25.55 - 89.40 ng/mL 3rd Trimester 48.40 -422.50 ng/mL Performed By: #### L 509.4001, L3300.1750, L501.9520, L700.8000, L100.0100, L506.0400, L3100.5055, L3100.5310, L501.9985, L3100.5420 #### [facility] [address] [place], [address] Prolactinon 12-03-2022 PROLACTIN 13.5 ng/mL Normal [facility] Comment on above: Order Comment: N Result Comment: NORMAL REFERENCE RANGES FEMALE NON- 2.2 - 30.3 ng/mL 8.1 - 347.6 ng/mL POST-MENOPAUSAL 0.7 - 31.5 ng/mL MALE 2.5 - 17.4 ng/mL Performed By: #### L 509.4001, L3300.1750, L501.9520, L700.8000, L100.0100, L506.0400, L3100.5055, L3100.5310, L501.9985, L3100.5420 #### [facility] [address] [facility] [place], [address] T4 Free Directon 12-03-2022 T4 FREE DIRECT 0.92 ng/dL Normal 0.76-1.46 [facility] Comment on above: Order Comment: N Performed By: #### L 509.4001, L3300.1750, L501.9520, L700.8000, L100.0100, L506.0400, L3100.5055, L3100.5310, L501.9985, L3100.5420 #### [facility] [address] [facility] [place], [address] Thyroid Stim Hormone (TSH)on 12-03-2022 TSH 1.23 uIU/mL Normal 0.358-3.74 [facility] Comment on above: Order Comment: N Performed By: #### L 509.4001, L3300.1750, L501.9520, L700.8000, L100.0100, L506.0400, L3100.5055, L3100.5310, L501.9985, L3100.5420 #### [facility] [address] [place], [place], [id number] hCG Titer Quant., Serumon HCG QUANT. < 1 Normal 1-3 [facility] Comment on above: Result Comment: hCG levels with Gestational Age Gestational Age hCG mIU/mL (IU/L) 0.2 - 1 week 5 - 50 1-2 weeks 50 - 500 2-3 weeks 100 - 5000 3-4 weeks 500 - 44497 4-5 weeks 1000 - 59760 5-6 weeks 87606 - 100,000 6-8 weeks 36889 - 200,000 2-3 months 41060 - 100,000 Performed By: #### L 509.4001, L3300.1750, L501.9520, L700.8000, L100.0100, L506.0400, L3100.5055, L3100.5310, L501.9985, L3100.5420 #### [facility] [address] [place], [address] No Panel Informationon 10-02 Glucose 2 Hour See comment [facility] Work Phone: Comment on above: FASTING 87 Col: 09/10 08/31 0849 30 min GLU 134 Col: 10/02/21 0919 60 min GLU 148 Col: 10/02/21 0949 120min GLU 136 Col: 10/02/21 1049 Serum or plasma insulin jake urement at 2 hours post 75 gm oral glucose (units/volume)on 10-02-2021 Insulin 2 Hr post 75 g glucose PO Qn See comment [facility] Work Phone: Comment on above: FASTING 21.3 Col: 0849 30 min INS 129.7 Col: 10/02/21 0919 60 min INS 141.3 Col: 10/02/21 0949 120min INS 135.7 Col: 10/02/21 1049 Basophil percentageon 2021 Testosterone [Mass/Vol] 15.24 ng/dL [facility] Work Phone: Comment on above: CENTRAL 90% REFERENC E RANGES MALE AGE <50 197.44 - 669.58 ng/dL MALE AGE > or = 50 187.72 - 684.19 ng/dL FEMALE AGE <50 8.38 - 35.01 ng/dL FEMALE AGE > or = 50 <7.00 - 35.92 ng/dL Effective as of 12/05/20 No Panel Informationon 09-26 Dehydroepiandrosterone Sulfate 118.0 ug/dL [facility] Work Phone: Follicle Stimulating Hormone 5.2 mIU/mL [facility] Work Phone: Comment on above: NORMAL REFERENCE RAN GES FEMALE FOLLICULAR 2.3 - 12.6 mIU/mL MID-CYCLE PEAK 5.2 - 17.5 mIU/mL LUTEAL 1.7 - 12.9 mIU/mL POST-MENOPAUSAL ON MHT 5.9 - 72.8 mIU/mL NOT ON MHT 12.7 - 132.2 mlU/mL MALE 0.7 - 10.8 mIU/mL Luteinizing Hormone 2.0 mIU/mL [facility] Work Phone: Comment on above: NORMAL REFERENCE RAN GES FEMALE FOLLICULAR 1.9 - 26.2 mIU/mL MID-CYCLE PEAK 22.8 - 76.1 mIU/mL LUTEAL 0.6 - 16.6 mIU/mL POST-MENOPAUSAL ON MHT 1.1 - 52.4 mIU/mL NOT ON MHT 8.6 - 61.8 mIU/mL MALE 1.2 - 10.6 mIU/mL Serum or plasma 17-hydroxypr ogesterone measurement (mass/volume)on 09-26-2021 17-Hydroxyprogesterone [Mass/Vol] 12 ng/dL [facility] Work Phone: Comment on above: Adult Female Follicu lar 15 - 70 Luteal 35 - 290Performed at: - [facility] [id number] Director: Lucho Collado MD, Phone: [phone] Serum or plasma cortisol xiao surement (mass/volume)on 09-26-2021 Cortisol [Mass/Vol] 9.80 ug/dL 3.44-22.45 [facility] Work Phone: Comment on above: Adult (AM) 5.27 - 22 .45 ug/dL Adult (PM) 3.44 - 16.76 ug/dLPlease note revised CORTISOL reference range effective 2019. Serum or plasma estradiol (E 2) measurement (mass/volume)on 09-26-2021 E2 [Mass/Vol] 49.5 pg/mL [facility] Work Phone: Comment on above: NORMAL REFERENCE RAN GES FEMALE FOLLICULAR 21.4 - 164.8 pg/mL MID-CYCLE PEAK 49.9 - 367.2 pg/mL LUTEAL 40.2 - 259.0 pg/mL POST-MENOPAUSAL ON MHT <11.0 - 462.1 pg/mL NOT ON MHT <11.0 - 58.3 pg/mL MALE <11.0 - 52.5 pg/mL NOTE:[facility] HAS CONFIRMED THE DRUG FULVETRANT (FASLODEX) MAY CAUSE FALSELY ELEVATED ESTRADIOL RESULTS WHEN USING THIS TEST METHOD. IF PATIENT IS TAKING FULVESTRANT AN ALTERNATIVE METHOD SHOULD BE USED TO DETERMINE ESTRADIOL CONCENTRATION. Serum or plasma prolactin me asurement (mass/volume)on 09-26-2021 Prolactin [Mass/Vol] 10.9 ng/mL [facility] Work Phone: Comment on above: NORMAL REFERENCE RAN GES FEMALE NON- 2.2 - 30.3 ng/mL 8.1 - 347.6 ng/mL POST-MENOPAUSAL 0.7 - 31.5 ng/mL MALE 2.5 - 17.4 ng/mL Serum or plasma sex hormone binding globulin measurement (moles/volume)on 09-26-2021 Sex hormone binding globulin [Moles/Vol] 25.5 nmol/L [facility] Work Phone: Comment on above: Performed at: [address] [id number] Director: Gilberto Godoy PhD, Phone: [phone] Whole blood hemoglobin A1c/t otal hemoglobin ratio (mass fraction)on 09-26-2021 HbA1c (Bld) [Mass fraction] 5.1 % 3.8-5.6 [facility] Work Phone: [phone] Comment on above: Normal < 5.7 % Predi abetic 5.7 - 6.4 % Diabetic >or= 6.5 % Please note range changes. Absolute lymphocyte counton 06-07-2021 Lymphocytes Auto (Unsp spec) [#/Vol] 3.27 10*3/uL 0.83-4.51 [facility] Work Phone: Basophil percentageon 2021 Basophils/100 WBC (Bld) 0.6 % 0-1 [facility] Work Phone: [phone] Chloride [Moles/Vol] 104 mmol/L 98-107 [facility] Work Phone: [phone] Eosinophils/100 WBC (Bld) 1.9 % 0-5 [facility] Work Phone: [phone] Glucose [Mass/Vol] 90 mg/dL 74-106 [facility] Work Phone: [phone] Neutrophils (Bld) [#/Vol] 6.0 10*3/uL 2.0-7.7 [facility] Work Phone: Neutrophils/100 WBC (Bld) 58.4 % 47-70 [facility] Work Phone: [phone] Potassium [Moles/Vol] 3.3 mmol/L 3.5-5.1 [facility] Work Phone: Sodium [Moles/Vol] 139 mmol/L 136-145 [facility] Work Phone: WBC (Bld) [#/Vol] 10.3 10*3/uL 4.4-11.0 [facility] Work Phone: [phone] Beta hCG serum qualon 2021 Beta HCG ( test) Ql Negative [facility] Work Phone: Blood erythrocytes count (nu mber/volume)on 06-07-2021 RBC (Bld) [#/Vol] 4.96 10*6/uL 4.2-5.4 [facility] Work Phone: Blood hemoglobin measurement (mass/volume)on 06-07-2021 Hemoglobin (Bld) [Mass/Vol] 14.7 g/dL 12.0-15.0 [facility] Work Phone: Blood lymphocytes/100 leukoc yteson 06-07-2021 Lymphocytes/100 WBC (Bld) 31.8 % 19-41 [facility] Work Phone: Blood monocytes/100 leukocyt eson 06-07-2021 Monocytes/100 WBC (Bld) 6.9 % 0-10 [facility] Work Phone: Blood platelet mean volumeon 06-07-2021 Platelet mean volume (Bld) [Entitic vol] 9.6 fL 6.2-12.0 [facility] Work Phone: Determination of erythrocyte mean corpuscular volume (MCV)on 06-07-2021 MCV (RBC) [Entitic vol] 86.1 fL 81-99 [facility] Work Phone: Hematocrit Auto (Bld) [Volum e fraction]on 06-07-2021 Hematocrit (Bld) [Volume fraction] 42.7 % 37-47 [facility] Work Phone: Laboratory - Chemistry and C hemistry - challengeon 06-07-2021 CO2 [Moles/Vol] 27.0 mmol/L 21.0-32.0 [facility] Work Phone: Urea nitrogen/Creatinine [Mass ratio] 13.6 mg/mg 10-20 [facility] Work Phone: Laboratory - Hematology and Cell countson 06-07-2021 Erythrocyte distribution width (RBC) [Entitic vol] 39.9 fL 35.1-43.9 [facility] Work Phone: Erythrocyte distribution width (RBC) [Ratio] 12.8 % 11.6-14.6 [facility] Work Phone: Immature granulocytes/100 WBC (Bld) 0.400 % 0.0-0.9 [facility] Work Phone: Comment on above: IG% - Immature Granu locytes (promyelocytes, myelocytes and metamyelocytes) > 1% indicates that a LEFT SHIFT is Present. MCH (RBC) [Entitic mass] 29.6 pg 27.0-32.0 [facility] Work Phone: Nucleated RBC/100 WBC (Bld) [Ratio] 0 % 0-5 [facility] Work Phone: MCHC Auto (RBC) [Mass/Vol]on 06-07-2021 MCHC (RBC) [Mass/Vol] 34.4 g/dL 32-[address] [facility] Work Phone: No Panel Informationon 06-07 Troponin I High Sensitivity 4 pg/mL 3.0-54.0 [facility] Work Phone: Comment on above: Please Note: New Deisi t Units and Gender Specific Reference Ranges. For more information see Policy Stat Procedure Fertile High Sensitivity Troponin (TNIH) and attachments. Estimated Creatinine Clearance Calc 93.37 ml/min [facility] Work Phone: Estimated GFR (MDRD) Amer 117 mL/min >60 [facility] Work Phone: Comment on above: GFR Calc Estimated GFR (MDRD) Non-Af Amer 96 mL/min >60 [facility] Work Phone: Comment on above: Non- GFR Calc Platelets bldon 06-07-2021 Platelets (Bld) [#/Vol] 221 10*3/uL 150-450 [facility] Work Phone: Serum or plasma calcium jake urement (mass/volume)on 06-07-2021 Calcium [Mass/Vol] 9.5 mg/dL 8.5-10.1 [facility] Work Phone: Serum or plasma creatinine m easurement (mass/volume)on 06-07-2021 Creatinine [Mass/Vol] 0.74 mg/dL 0.55-1.[address] [facility] Work Phone: Comment on above: The validity of the calculated GFR & GFRAA in patients over 70 years has not been determined. Clinical correlation is essential. Serum or plasma urea nitroge n measurement (mass/volume)on 06-07-2021 Urea nitrogen [Mass/Vol] 10 mg/dL 7-18 [facility] Work Phone: Thin prep Papanicolaou smear with manual screeningon 06-07-2021 Thin prep Papanicolaou smear with manual screening 8 5-15 [facility] Work Phone: EMERGENCY REPORTon 2 EMERGENCY REPORT [facility] EMERGENCY ROOM REPORT NAME ACCOUNT SEX AGE ADMIT DISCHARGE PT MED. RECORD# NUMBER DATE DATE TYPE TYESHA LE [id number] F 35 05/28/21 05/28/21 3 [id number] ROOM: ER DATE OF : 1985 DICTATING PHYSICIAN: David Morton Date seen is May 28, 2021 at 9:40 p.m. HISTORY OF PRESENT ILLNESS: The patient is a 35-year-old female who states that she woke up around 5 a.m. this morning, and before she even got out of bed, with a red pruritic rash to her chest and face. She states that through the afternoon the rash started to get worse, and this evening her eyelids started to swelling so she presents here for an evaluation. She did take some Benadryl at home, but that really has not seemed to help much. She denies any recent laundry or soap changes. She has never had this before. She denies any shortness of breath. She denies any wheezing. She states her face does feel heavy and thick from the swelling. She does not feel like her throat is closing up. The only other thing she can think of is she used to have some environmental allergies, and Friday she was out at her mothers house and she had some Frankincense running through the diffuser, but that was 2 days ago so the patient really was not convinced that is what caused this rash, but it is a thought. Last night, she did eat pork and sauerkraut, but she has eaten that before. She ate that around 6:30 p.m. She has never had a problem with it before. She does not have a primary care physician. PAST MEDICAL HISTORY: Denied. PAST SURGICAL HISTORY: Tonsillectomy, . ALLERGIES: She is allergic to penicillin. She denies taking any penicillin. SOCIAL HISTORY: She is not a smoker. She denies any use of alcohol or illicit drugs. She lives at home with family. REVIEW OF SYSTEMS: The patient denies any fever, sweats, or chills. She denies any chest pain, shortness of breath, cough, sputum, wheezing, abdominal pain, nausea, vomiting, diarrhea, constipation, melena, hematochezia, headache, numbness, unsteady gait, weakness, neck or back pain, joint pain. She does admit to an urticarial/hive like rash to the face and chest with some associated pruritus. Further review of systems is negative. PHYSICAL EXAMINATION: VITAL SIGNS: Blood pressure 179/97, pulse 82, respiratory rate 16, temperature 97.8, pulse ox 95% on room air, weight 240 pounds. Page 1 of 3 TYESHA LE Emergency Room Report TYESHA LE : 1985 GENERAL APPEARANCE: The patient is alert and oriented x3. She presently appears in no acute distress. She is pleasant and cooperative. She is smiling and talkative. HEENT: Head appears atraumatic. Pupils are equal and reactive to light. Red reflex intact bilaterally. Extraocular muscles are intact. I do note a red pruritic rash to the face and her upper eyelids are somewhat swollen, but she can easily keep her eyes open. Ears: I do not see any rash to the external ears, but she states her ears were itching. External canals are not edematous, and there was no erythema to the tympanic membranes. Nose: Exhibits no rhinorrhea or epistaxis. Mouth: Mucous membranes are moist. No pharyngeal erythema. Uvula is midline and elevates. I do not see any swelling in the posterior pharynx, nothing that looks like a quinsy abscess. No drooling. Tongue looks to be normal size. NECK: Neck is supple. Trachea is midline. No JVD or lymphadenopathy. No posterior cervical tenderness. No nuchal rigidity. LUNGS: Clear to auscultation bilaterally. No adventitious sounds are noted. No accessory muscle use noted. CV: Heart rate and rhythm are regular without murmur. ABDOMEN: Abdomen is soft and nontender with normoactive bowel sounds x4 quadrants. No guarding or rigidity. No rebound. No palpable abdominal masses. No hepatosplenomegaly . BACK: Back exhibits no midline or paraspinal region tenderness. No increased paraspinal muscle rigidity. Negative Mo's sign. EXTREMITIES: No edema or cyanosis. Peripheral pulses are intact. No motor or sensory deficits are noted. Hand cement handler are strong and symmetric. SKIN: Skin is warm and dry. No diaphoresis, but I do note an urticarial rash to the face with some associated swelling, and then she does have the same rash across her chest with no swelling. It does emery. It is not warm to touch. It is not tender to touch. It does appear to be a hive like rash. I do not notice it on her abdomen or back, and I do not notice it on any of her extremities. NEUROLOGIC: Neurologic examine shows the patient to be alert and oriented x4. No motor or sensory deficits are noted. Normal speech. No hot potato voice. No conversational dyspnea. EMERGENCY DEPARTMENT COURSE AND TREATMENT/PLAN/DIS POSITION: The patient was given Solu-Medrol 125 mg IV here, Benadryl 50 mg IV here, and Pepcid 20 mg IV here. She did improve during her ER course. I did write her a prescr (more content not included)... Normal [facility] XR Chest PA and Lateralon IMPRESSION: Relatively shallow inspiration. Patchy multifocal bilateral airspace opacities, concerning for multifocal infection. Please note that viral pneumonia is not excluded. Client Services Representative: PSCB Transcribe Date/Time: Feb 03 2021 10:47A Dictated by : ABNER SOLIZ MD This examination was interpreted and the report reviewed and electronically signed by: ABNER SOLIZ MD on Feb 03 2021 10:48AM [facility] DIVISION OF RADIOLOGY * * *Final Report* * * DATE OF EXAM: Feb 03 2021 10:46AM WOX [id number] - XR CHEST 2V FRONTAL/LAT / PROCEDURE REASON: multiple diagnoses * * * * Physician Interpretation * * * * EXAMINATION: CHEST RADIOGRAPH (2 VIEW FRONTAL & LATERAL) CLINICAL HISTORY: Exposure to COVID-19 virus Cough MQ: XC2_6 EXAM DATE/TIME: 02/03/2021 10:46 AM COMPARISON: No relevant prior studies available. RESULT: There has been a relatively shallow inspiration. There are patchy multifocal bilateral airspace opacities, concerning for multifocal infection. Please note that viral pneumonia is not excluded. There is no overt pleural effusion, pneumothorax, or pulmonary vascular redistribution. There is scoliosis of the thoracic spine. DIVISION OF RADIOLOGY Provider, [facility] [place] - 02/03/2021 * * *Final Report* * * DATE OF EXAM: Feb 03 2021 10:46AM WOX [id number] - XR CHEST 2V FRONTAL/LAT / PROCEDURE REASON: multiple diagnoses * * * * Physician Interpretation * * * * EXAMINATION: CHEST RADIOGRAPH (2 VIEW FRONTAL & LATERAL) CLINICAL HISTORY: Exposure to COVID-19 virus Cough MQ: XC2_6 EXAM DATE/TIME: 02/03/2021 10:46 AM COMPARISON: No relevant prior studies available. RESULT: There has been a relatively shallow inspiration. There are patchy multifocal bilateral airspace opacities, concerning for multifocal infection. Please note that viral pneumonia is not excluded. There is no overt pleural effusion, pneumothorax, or pulmonary vascular redistribution. There is scoliosis of the thoracic spine. IMPRESSION IMPRESSION: Relatively shallow inspiration. Patchy multifocal bilateral airspace opacities, concerning for multifocal infection. Please note that viral pneumonia is not excluded. Client Services Representative: PSCB Transcribe Date/Time: Feb 03 2021 10:47A Dictated by : ABNER SOLIZ MD This examination was interpreted and the report reviewed and electronically signed by: ABNER SOLIZ MD on Feb 03 2021 10:48AM EST [facility] Radiology Study observation (narrative) Darya Irvin XR Chest PA and LateralOrder ed By: Cc Provider on 02-03-2021 [facility] Vital Signs Date Time Vital Sign Value Performing Clinician Sathya peralta 07-14-2024 08:41-0500 Body mass index (BMI) [Ratio] 41.4 kg/m2 Shelbie Jordan APRN.RAILROAD SIGNAL AND SWITCH OPERATOR Work Phone: [facility] 07-14-2024 08:41-0500 Body temperature 98.2 [degF] Shelbie Jordan APRN.RAILROAD SIGNAL AND SWITCH OPERATOR Work Phone: [facility] 07-14-2024 08:41-0500 Body weight 109.4 kg Shelbie Jordan APRN.RAILROAD SIGNAL AND SWITCH OPERATOR Work Phone: [facility] 07-14-2024 08:41-0500 Diastolic blood pressure 82 mm[Hg] Shelbie Jordan APRN.RAILROAD SIGNAL AND SWITCH OPERATOR Work Phone: [facility] 07-14-2024 08:41-0500 Heart rate 63 /min Shelbie Jordan APRN.RAILROAD SIGNAL AND SWITCH OPERATOR Work Phone: [facility] 07-14-2024 08:41-0500 Respiratory rate 16 /min Shelbie Jordan APRN.RAILROAD SIGNAL AND SWITCH OPERATOR Work Phone: [facility] 07-14-2024 08:41-0500 SaO2% (BldA) [Mass fraction] 97 % Shelbie Jordan APRN.RAILROAD SIGNAL AND SWITCH OPERATOR Work Phone: [facility] 07-14-2024 08:41-0500 Systolic blood pressure 132 mm[Hg] Shelbie Jordan APRN.RAILROAD SIGNAL AND SWITCH OPERATOR Work Phone: [facility] 03-09-2024 11:00-0400 Body height 162.6 cm Marilyn Summers APRN.RAILROAD SIGNAL AND SWITCH OPERATOR Work Phone: [facility] 03-09-2024 11:00-0400 Body mass index (BMI) [Ratio] 41.37 kg/m2 Marilyn Summers APRN.RAILROAD SIGNAL AND SWITCH OPERATOR Work Phone: [facility] 03-09-2024 11:00-0400 Body weight 109.32 kg Marilyn Summers APRN.RAILROAD SIGNAL AND SWITCH OPERATOR Work Phone: [facility] 03-09-2024 11:00-0400 Diastolic blood pressure 74 mm[Hg] Marilyn Summers APRN.RAILROAD SIGNAL AND SWITCH OPERATOR Work Phone: [facility] 03-09-2024 11:00-0400 Systolic blood pressure 120 mm[Hg] Marilyn Summers APRN.RAILROAD SIGNAL AND SWITCH OPERATOR Work Phone: [facility] 04-09-2023 13:05-0500 Body height 165.7 cm Arielle Mahajan MD Work Phone: [facility] 04-09-2023 13:05-0500 Body weight 108.41 kg Arielle Mahajan MD Work Phone: [facility] 04-09-2023 13:05-0500 Diastolic blood pressure 94 mm[Hg] Arielle Mahajan MD Work Phone: [facility] 04-09-2023 13:05-0500 Systolic blood pressure 142 mm[Hg] Arielle Mahajan MD Work Phone: [facility] 06-07-2021 23:08-0500 Body temperature 98 [degF] [facility] Work Phone: 06-07-2021 23:08-0500 Diastolic blood pressure 87 mm[Hg] [facility] Work Phone: 06-07-2021 23:08-0500 Heart rate 89 /min [facility] Work Phone: 06-07-2021 23:08-0500 Respiratory rate 23 /min [facility] Work Phone: 06-07-2021 23:08-0500 SaO2% (BldA) [Mass fraction] 97 % [facility] Work Phone: 06-07-2021 23:08-0500 Systolic blood pressure 149 mm[Hg] [facility] Work Phone: 06-07-2021 19:34-0500 Body height 162.56 cm [facility] Work Phone: 06-07-2021 19:34-0500 Body mass index (BMI) [Ratio] 41.1 kg/m2 [facility] Work Phone: 06-07-2021 19:34-0500 Body weight 108.86 kg [facility] Work Phone: Encounters Encounter Date Encounter Type Care Provider Facility Start: 03-10-2025 End: 03-10-2025 ambulatory MARILYN SUMMERS Facility:[facility] Start: 03-10-2025 Encounter for gynecological examination (general) (routine) without abnormal findings MARILYN SUMMERS [facility] Start: 07-14-2024 End: 07-14-2024 ambulatory MARILYN SUMMERS Facility:[facility] Start: 07-14-2024 End: 07-14-2024 Patient encounter procedure Shelbie Jordan APRN.RAILROAD SIGNAL AND SWITCH OPERATOR Work Phone: [facility] Comment on above: Dizziness (Primary D x) Start: 03-09-2024 End: 03-09-2024 Patient encounter procedure Marilyn Summers APRN.RAILROAD SIGNAL AND SWITCH OPERATOR Work Phone: OB/Gynecology Comment on above: Encounter for gyneco logical examination (general) (routine) without abnormal findings (Primary Dx); Screening for cervical cancer; Encounter for screening for human papillomavirus (HPV) Start: 03-09-2024 End: 03-09-2024 Patient encounter status Marilyn Summers APRN.RAILROAD SIGNAL AND SWITCH OPERATOR Work Phone: [facility] Start: 04-09-2023 End: 04-09-2023 Patient encounter procedure Arielle Mahajan MD Work Phone: OB/Gynecology Comment on above: Irregular menstrual cycle (Primary Dx); Encounter for preconception consultation Start: 12-03-2022 End: 12-03-2022 ambulatory Angelina Wallyabhishek Facility:[facility] Start: 10-02-2021 End: 10-02-2021 Patient encounter procedure [facility] [place] plating department helper Off Start: 09-26-2021 End: 09-26-2021 Patient encounter procedure [facility] [place] plating department helper Off Start: 06-07-2021 End: 06-08-2021 Emergency department patient visit [facility] Start: 05-28-2021 End: 05-29-2021 Emergency department patient visit DAVID GRAFF [facility] Start: 02-03-2021 End: 02-03-2021 Subsequent hospital visit by physician [facility] Work Phone: Radiology Comment on above: Exposure to COVID-19 virus [Z20.822] Procedures Date Procedure Procedure Detail Performing Clinician Start: 06-07-2021 Plain chest X-ray Start: 02-03-2021 Radiologic exam ches t 2 views Richelle Chatman PA-C Work Phone: Plan of Treatment Date Care Activity Detail Author Start: 03-09-2029 Screening for malign ant neoplasm of cervix Cervical Cancer Screening [facility] Start: 03-10-2025 End: 03-10-2025 Patient encounter procedure 03/10/2025 10:00 AM EDT Office Visit OB/Gynecology [address] [place] [address] Marilyn Summers APRN.RAILROAD SIGNAL AND SWITCH OPERATOR [address] [place] [address] Annual OB/Gynecology Comment on above: Annual Start: 03-09-2024 End: 03-09-2024 Patient encounter procedure 03/09/2024 11:00 AM EDT Office Visit OB/Gynecology [address] [place] [address] Marilyn Summers APRN.RAILROAD SIGNAL AND SWITCH OPERATOR [address] [place] [address] ANNUAL OB/Gynecology Comment on above: ANNUAL Start: 01-11-2024 Covid-19 Vaccine ( season) Covid-19 Vaccine () [facility] Start: 01-11-2024 Influenza vaccination Influenza Vacc ine (#1) [facility] Start: 04-09-2023 End: 07-09-2023 Progesterone [Mass/volume] in Serum or Plasma PROGESTERONE BLD Lab Routine Irregular menstrual cycle Expected: 04/09/2023, Expires: 07/09/[address] [facility] Work Phone: Comment on above: Expected: 04/09/2023 , Expires: 07/09/2023 Start: 01-10-2023 Influenza vaccination Influenza Vacc ine (#1) [facility] Start: 02-07-2023 Pap Testing Pap Testing [facility] Start: 05-12-2022 Depression Assessment Depression Ass essment [facility] Start: 06-18-2020 Screening for malign ant neoplasm of cervix Cervical Cancer Screening [facility] Start: 12-06-2017 HPV Testing HPV Testing [facility] Start: 12-06-2006 Hepatitis B Vaccine (1 of 3 - 19+ 3-dose series) Hepatitis B Vaccine (1 of 3 - 19+ 3-dose series) [facility] Start: 12-06-2006 Urine microalbumin profile DTaP,Tdap,Td Vaccine (1 - Tdap) [facility] Start: 12-06-2005 Anxiety Screening Anxiety Screening [facility] Start: 12-06-2005 Depression Screening Depression Scre ening [facility] Start: 12-06-2005 Hepatitis C Screening Hepatitis C [facility] Start: 12-06-2005 Hepatitis C screening Hepatitis C [facility] Start: 12-06-2005 HIV Screening HIV Screening [facility] Start: 12-06-2005 HIV screening HIV Screening [facility] Start: 06-08-1988 Covid-19 Vaccine (#1) Covid-19 Vacci ne (#1) [facility] Start: 1985 Hepatitis B Vaccine (1 of 3 - 3-dose series) Hepatitis B Vaccine (1 of 3 - 3-dose series) [facility] PAP TEST PAP TEST Lab [place] Encounter for gynecological examination (general) (routine) without abnormal findings Screening for cervical cancer Encounter for screening for human papillomavirus (HPV) 03/09/2024 12:00 PM EDT [facility] Work Phone: Patient Education ED Hypertensio n New Begin Treatment [facility] Work Phone: Patient referral [facility] Work Phone: [facility] Payers Date Payer Category Payer Unknown MMO M[employer] PPO [id number] 2023-Present [phone] [address] [place] [address] PPO [id number] 2023 Unknown [id number] 2022 Private Health Insurance EB [id number] 2022 Self-pay [id number] 2021 Private Health Insurance [id number] 2012 Unknown SELF PAY INSURANCE [id number] 1985 Unknown [id number] Private Health Insurance EBM [id number] Unknown [id number] Social History Date Type Detail Facility [facility] Work Phone: Start: 06-07-2021 Tobacco smoking stat us AZIS Unknown if ever smoked [facility] Work Phone: Start: 1985 Sex Assigned At Female W [facility] Work Phone: Start: 02-03-2021 End: 03-06-2023 Tobacco smoking status NHIS Never smoked tobacco [facility] Work Phone: Start: 02-03-2021 End: 03-06-2023 Tobacco use and exposure Smokeless tobacco non-user [facility] Work Phone: Start: 04-09-2023 End: 07-14-2024 Alcohol intake Ex-drinker (finding) [facility] Start: 03-06-2023 End: 04-09-2023 History of Social function [facility] Start: 03-06-2023 End: 04-09-2023 Tobacco use panel [facility] National Score (1-100), lower number is lower risk 77 [facility] Start: 1985 Sex Assigned At Not on file [facility] Start: 01-04-2021 End: 02-03-2021 Exposure to SARS-CoV-2 (event) Yes [facility] Mental Status Date Assessment Result Facility 06-07-2021 Cognitive function Level Of Consciousness Awake [facility] Work Phone: Clinical Notes 02-03-2021 to 03-10-2025 Shelbie Jordan APRN.DEANNE - 07/14/2024 8:49 AM Marilyn Carey APRN.DEANNE - 03/09/2024 10:53 AM EDTPatiArielle Vigil MD - 04/09/2023 1:00 PM EST Note Date & Type Note Facility 03-10-2025 Note HNO ID: [id number] Author: MARILYN SUMMERS APRN.RAILROAD SIGNAL AND SWITCH OPERATOR Service: ? Author Type: Nurse Practitioner Type: Progress Notes Filed: 03/10/2025 10:52 Note Text: Tyesha is a 39 year old who presents for an annual gynecologic exam without complaints. Menses: cycles every 35 days and 7 days of moderate flow. Bleeding amount bothersome: No Bleeding between periods: No Period symptoms: Breast tenderness Contraception: none - accepting if occurs, considering vasectomy HPV vaccine: No Last Pap: 03/09/2024 normal HPV: 03/09/2024 normal History of abnormal pap: Yes [place] 2012 and 2013 with no other procedures and normal Paps since. Last mammogram: around 2015 left breast lipoma, still present Sexually active: Yes Time with current partner: 14 years Number of lifetime partners: 1 History of STDS: HPV Patient concerns for STD exposure: No Pain with intercourse: No Postcoital bleeding: No Bothersome pelvic pain: No Documentation from previous visit of 03/09/2024 was copied and pasted, documentation has been reviewed and edited as necessary for today's visit. OB History Gravida1 Para1 Term1 Preterm0 AB0 Living1 SAB0 IAB0 Ectopic0 Multiple0 Live Births1 Paralegals History LMP: 02/17/2025, Having periods Age at Menarche: 12 Age at First : Age at Menopause: Paralegals History Comments: Sexual Activity: Yes; Male Contraception: None Menstrual Tracking History Flowsheet Row Office Visit from 03/10/2025 in OB/Gynecology Period Cycle (Days) 38 Period Duration (Days) 7 Menstrual Flow Moderate PAST MEDICAL HISTORY Diagnosis Date Abnormal Pap smear of cervix in 20s PAST SURGICAL HISTORY Procedure Laterality Date DELIVERY ONLY 07/01/2012 COLPOSCOPY 2014 COLPOSCOPY CERVIX VAG LOOP ELTRD BX CERVIX 2013 TONSILLECTOMY AND ADENOIDECTOMY FAMILY HISTORY Problem Relation Age of Onset No Known Problems Mother Hypertension Father No Known Problems Brother Dementia Maternal Grandmother Heart Attack Maternal Grandfather Diabetes Maternal Grandfather Breast Cancer Paternal Grandmother 45 Heart Attack Paternal Grandfather SOCIAL HISTORY Social History Tobacco Use Smoking status: Never Smokeless tobacco: Never Vaping Use Vaping status: Never Used Substance Use Topics Alcohol use: Not Currently Drug use: Never REVIEW OF SYSTEMS Abdomen: No abdominal pain, nausea, vomiting, diarrhea, or constipation. No bloating, early satiety, indigestion, or increased flatulence. Bladder: No dysuria, gross hematuria, urinary frequency, urinary urgency, or incontinence. Breast: No breast lumps, nipple d/c, overlying skin changes, redness or skin retraction. Allergies and current medication updated:Yes SENSITIVE EXAM: The sensitive examination was discussed with the Patient or Patient's Authorized Jumbo Operator. As applicable, any other physician, advance practice provider, medical student, or other health professional student that will be observing or involved in the sensitive examination for educational or training purposes was discussed with the Patient or Authorized Jumbo Operator. The Patient or Authorized Jumbo Operator has agreed to proceed with the sensitive examination. (Sensitive examination includes inspection and/or palpation of the breasts, pelvis, prostate and anorectal regions). EXAM: BP 140/89 Ht 5' 4.75 (1.65m) Wt 242 lb (109.8kg) LMP 02/17/2025 BMI 40.57 kg/(m2). GENERAL: pleasant, female in no apparent distress HEENT: Normocephalic, atraumatic, mucus membranes moist, and no lesions NECK: Supple, full range of motion, no adenopathy, and thyroid normal DERMATOLOGY: Normal, without lesions, non-icteric, and non-hirsute BREAST: soft, non-tender, symmetric, no dominant mass, normal nipple-areolar complex, no lymphadenopathy, and no nipple discharge. Dense tissue palpated bilaterally to lower breasts. Small stable lipoma left axilla. CHEST: Clear to auscultation and Normal inspiratory effort ABDOMEN: soft, non-tender, and no masses PELVIC: external genitalia normal, normal Bartholin's glands, urethra, [place]'s glands, no vulvar lesions, no cervical lesions, physiologic discharge present, normal appearing perineal body and perianal region BIMANUAL: uterus normal size, shape and consistency, no adnexal masses, and non-tender RECTOVAGINAL: deferred. NEURO: alert and oriented x3,exam grossly non-focal EXTREMITIES: normal ASSESSMENT/PLAN: 1) Health maintenance: Pap/HPV up to date. Mammogram starting age 40. - Reviewed breast exam findings; advised monthly self-breast examination to monitor for any unilateral changes or concerning lumps. Noted stable lipoma in left breast without enlargement or associated symptoms. Nutrition, exercise and routine health maintenance exams reviewed. 2) Contraception: none. Contraceptive options reviewed and information provided. acknowledges potential (more content not included)... [facility] 07-14-2024 Note HNO ID: [id number] Author: SHELBIE JRODAN APRN.RAILROAD SIGNAL AND SWITCH OPERATOR Service: ? Author Type: Nurse Practitioner Type: Progress Notes Filed: 07/14/2024 08:51 Note Text: Patient came in with complaints of dizziness headache and a weird feeling in her right ear but not necessarily pain. Did look in patient's ears they are within normal limits. Patient said she was driving on her way to work this morning and felt like she was going to pass out. Patient said she took Tylenol and this is helping with the headache a little bit. Patient has no other sick symptoms. Due to patient feeling like she was going to pass out patient's being referred to the ER. Patient said her will take her. Patient agreeable to care plan. [facility] 07-14-2024 History of Present illness Narrative Patient came in with complaints of dizziness headache and a weird feeling in her right ear but not necessarily pain. Did look in patient's ears they are within normal limits. Patient said she was driving on her way to work this morning and felt like she was going to pass out. Patient said she took Tylenol and this is helping with the headache a little bit. Patient has no other sick symptoms. Due to patient feeling like she was going to pass out patient's being referred to the ER. Patient said her will take her. Patient agreeable to care plan. documented in this encounter [facility] 03-09-2024 History of Present illness Narrative Vegetable Buncher offered: Patient declines. Tyesha is a 38 year old who presents for an annual gynecologic exam without complaints. Menses: cycles every 35 days and 7 days of flow. Missed December menses. Contraception: none. Happy if occurs. HPV vaccine: No Last Pap: normal Thinks 09/2021 [facility] HPV: negative Thinks 09/2021 [place] History of abnormal pap: Yes [place] 2012 and 2013 with no other procedures and normal Paps since. Last mammogram: around 2015 left breast lipoma Sexually active: Yes History of STDS: HPV Patient concerns for STD exposure: No. Time with current partner: 13 years Pain with intercourse: No Postcoital bleeding: No OB History T1 L1 SAB0 IAB0 Ectopic0 Multiple0 Live Births1 Paralegals History LMP: 02/03/2024 (Exact Date), Having periods Age at Menarche: Age at First : Age at Menopause: Paralegals History Comments: Sexual Activity: Yes; Male Contraception: No contraception data on record PAST MEDICAL HISTORY Diagnosis Date NEGATIVE HISTORY OF PAST SURGICAL HISTORY Procedure Laterality Date DELIVERY ONLY 07/01/2012 COLPOSCOPY 2014 TONSILLECTOMY & ADENOIDECTOMY <AGE 14 VAGINOSCOPY 2013 FAMILY HISTORY Problem Relation Age of Onset No Known Problems Mother Hypertension Father No Known Problems Brother Heart Attack Maternal Grandfather Diabetes Maternal Grandfather Breast Cancer Paternal Grandmother 45 Heart Attack Paternal Grandfather SOCIAL HISTORY Social History Tobacco Use Smoking status: Never Smokeless tobacco: Never Vaping Use Vaping status: Never Used Substance Use Topics Alcohol use: Not Currently Drug use: Never REVIEW OF SYSTEMS Abdomen: No abdominal pain, nausea, vomiting, diarrhea, or constipation. No bloating, early satiety, indigestion, or increased flatulence. Bladder: No dysuria, gross hematuria, urinary frequency, urinary urgency, or incontinence. Breast: No breast lumps, nipple d/c, overlying skin changes, redness or skin retraction. Allergies and current medication updated:Yes SENSITIVE EXAM: The sensitive examination was discussed with the Patient or Patient's Authorized Jumbo Operator. As applicable, any other physician, advance practice provider, medical student, or other health professional student that will be observing or involved in the sensitive examination for educational or training purposes was discussed with the Patient or Authorized Jumbo Operator. The Patient or Authorized Jumbo Operator has agreed to proceed with the sensitive examination. (Sensitive examination includes inspection and/or palpation of the breasts, pelvis, prostate and anorectal regions). EXAM: BP 120/74 Ht 5' 4 (1.63m) Wt 241 lb (109.3kg) LMP 02/03/2024 BMI 41.35 kg/(m^2). GENERAL: pleasant, female in no apparent distress HEENT: Normocephalic, atraumatic, mucus membranes moist, and no lesions NECK: Supple, full range of motion, no adenopathy, and thyroid normal DERMATOLOGY: Normal, without lesions, non-icteric, and non-hirsute BREAST: soft, non-tender, symmetric, no dominant mass, normal nipple-areolar complex, no lymphadenopathy, and no nipple discharge CHEST: Normal inspiratory effort ABDOMEN: soft, non-tender, and no masses PELVIC: external genitalia normal, normal Bartholin's glands, urethra, [place]'s glands, no vulvar lesions, no cervical lesions, physiologic discharge present, normal appearing perineal body and perianal region BIMANUAL: uterus normal size, shape and consistency, no adnexal masses, and non-tender RECTOVAGINAL: deferred. NEURO: alert and oriented x3,exam grossly non-focal EXTREMITIES: normal ASSESSMENT/PLAN: 1) Health maintenance: Pap done with HPV. Nutrition, exercise and routine health maintenance exams reviewed. 2) Contraception: none. Contraceptive options reviewed and information provided. 3) STD screening: Declined STD check. 4) Follow up one year or sooner as needed. She has some copies of past Pap results and colposcopy at home - she will bring to office. Marilyn Summers APRN.DEANNE documented in this encounter [facility] 04-09-2023 Instructions Arielle Mahajan MD - 04/09/2023 1:56 PM EST Start the femara on day 3 of your cycle. Cycle day one is the first day of menstrual flow (usually more than spotting, when you would wear more than a pantyliner for protection). Take the femara for 5 days. If you are prescribed more than one pill of femara you make take them all at the same time. Time intercourse every other day cycle day 9-16. Use an ovulation prediction kit starting at about day 10 if you want. Record date/dates that you get color changes if you get color changes. Get a day 21 progesterone level drawn (if day 21 is a Friday it is ok to get it a day early or day late). Call with onset of your period or on day 32 w/ the results of a home test if you haven't started your period yet. Risks of ovulation induction include but are not limited to : multiple gestatations (twins or rarely triplets), ovarian hyperstimulation syndrome that results in large ovarian cysts and sometimes pain and electrolyte abnormalities that need treated by hospitalization, increased pain or bleeding with menstruation, moodiness, nausea, breast tenderness or allergic reactions to the medication. documented in this encounter [facility] 04-09-2023 History of Present illness Narrative HPI: Has been once before, did not have trouble conceiving. She denies complications in her first . After she had her son in 2012, she was using OCPs initially from [id number] and then switched to nuvaring because OCPs were causing her migraines. Was using nuvaring prior to trying to get in 2019. Has been trying to get since 2019, did not really go to doctor due to COVID. Visited [facility] in October 2021 and ran some tests, found out she was insulin resistant and was started on metformin. She was taking 1000mg per day. Her metformin prescription ran out in November in 2022 and she has not been taking it since. She was also taking DHEA, started in October 2021 and stopped taking in November 2022 after testosterone labs came back elevated. Completed one round of Clomid in January 2023 and did not have follow up after that due to [facility] closing. In regards to menses, she used to have long cycles where her period would come around 8 weeks. Of note, prior to 2019 her cycle was every 28 days. She mentions stressful time at work in 2019. After starting metformin, her cycle was every 6 weeks and since completing Clomid course she gets her period about 30-35 days. She has menses for 7 days. Does not get too bad cramping during her periods. LMP: 03/17/23 She had an ultrasound in November 2022 at [facility] and findings were normal, she was told her ovaries appeared normal. She had abnormal paps earlier and required procedure in 2013. She notes she's gained 15lbs between 2018 and 2022 and has been having difficulty losing the weight. She is taking a vitamin. She notes increased vaginal discharge when she was taking clomid. She denies fevers, abnormal hair growth, abdominal pain, purple striae, intolerance to hear or cold, sense of heart racing, dry skin, hairloss, nipple discharge, lumps or bumps in breasts, pain with sex, bleeding or spotting, and new or abnormal swelling. Her did get a referral to get checked for infertility but is putting off for now. Surgical history includes for failure to progress passed 7cm. OB History T0 L1 SAB0 IAB0 Ectopic0 Multiple0 Live Births0 Paralegals History LMP: 03/17/2023 (Exact Date), Having periods Age at Menarche: Age at First : Age at Menopause: Paralegals History Comments: Sexual Activity: Yes; Male Contraception: No contraception data on record PAST MEDICAL HISTORY Diagnosis Date NEGATIVE HISTORY OF PAST SURGICAL HISTORY Procedure Laterality Date DELIVERY ONLY 07/01/2012 TONSILLECTOMY & ADENOIDECTOMY <AGE 14 FAMILY HISTORY Problem Relation Age of Onset No Known Problems Mother Hypertension Father No Known Problems Brother Heart Attack Maternal Grandfather Diabetes Maternal Grandfather Breast Cancer Paternal Grandmother Heart Attack Paternal Grandfather Social History Tobacco Use Smoking status: Never Smokeless tobacco: Never Vaping Use Vaping Use: Never used Substance Use Topics Alcohol use: Not Currently Drug use: Never Current Outpatient Medications Medication Sig CLOMID 50 mg tablet TAKE 1 TABLET BY MOUTH DAILY CYCLE DAY 3-7 (Patient not taking: Reported on 04/09/2023) amLODIPine (NORVASC) 5 mg tablet Take by mouth. (Patient not taking: Reported on 04/09/2023) No current facility-administered medications for this visit. Allergies As of Date: 04/09/2023 Allergen Noted Reaction PENICILLINS 02/03/2021 Hives Fully Assessed 04/09/2023 Allergies and current medication updated:Yes EXAM: BP 142/94 Ht 5' 5.25 (1.66m) Wt 239 lb (108.4kg) LMP 03/17/2023 BMI 39.48 kg/(m^2). GENERAL: pleasant, female in no apparent distress ASSESSMENT AND PLAN: preconceptual counseling, irreg menses desires to conceive. Provera to induce withdrawal bleed. R/B/A to ovulation induction w/ femara reviewed. Day 21 progesterone ordered. Offered carrier screening, she will consider. Recommend PNV. Cont. glucophage. D/w her if not successful w/ 6 cycles of ovulation or sooner if she desires will refer to [facility] recommend semen analysis option for [facility] reviewed Arielle Mahajan MD documented in this encounter [facility] 02-03-2021 History of Present illness Narrative Radiology Service Progress Note PATIENT NAME: Tyesha Le DATE OF SERVICE: February 03, 2021 TIME: 10:35 AM PATIENT IDENTITY VERIFICATION COMPLETED USING TWO (2) IDENTIFIERS: Name and Date of confirmed by patient verbally. FALL SCREENING: Has the patient had 2 falls in the last year or 1 fall with injury or currently using an Ambulatory Assistive Device (Walker, Cane, Wheelchair, Crutches, etc.)? No PATIENT GENDER DATA: Female. status: : No status: NO. PATIENT RELEVANT IMPLANT DATA REVIEWED: Yes RADIOLOGY DEPARTMENT: General X-ray: Exam(s) Completed: Chest X-Ray PERIPHERAL IV DATA: Not applicable SIGNED BY: RT Casie(R) February 03, 2021 10:35 AM documented in this encounter [facility] Evaluation note No assessment inform ation available [facility] Work Phone: Evaluation note Diagnosis Irregular menstrual cycle- Primary Encounter for preconception consultation Other procreative management counseling and advice [facility] Diagnosis Encounter for gynecological examination (general) (routine) without abnormal findings- Primary Screening for cervical cancer Screening for malignant neoplasm of the cervix Encounter for screening for human papillomavirus (HPV) Special screening examination for human papillomavirus (HPV) [facility] Diagnosis Dizziness- Primary Dizziness and giddiness documented in this encounter [facility] Summary Purpose Family History No Family History Records Found Relationship Condition Age at Onset Recorded Date/T brenda father Hypertension Unknown grandmother Malignant neoplasm of breast Unknown Advance Directives No Advanced Directives Records Found Advance Directive Response Recorded Date/ Time Living Will No June 07 10:09pm Power of Attic Blower No June 07, 2021 10:09pm Chief Complaint and Reason for Visit Chief Complaint htn Additional Source Comments INFORMATION SOURCE (unrecogn ized section and content) DATE CREATED AUTHOR 06/06/2021 Yefri Garcia [facility] DATE CREATED AUTHOR AUTHOR'S ORGANIZ ATION 12/08/2022 [facility] DATE CREATED AUTHOR AUTHOR'S ORGANIZ ATION 03/11/2025 [facility] Goals (unrecognized section and content) Goals may be documented in a n alternate sectionGoals may be documented in an alternate section Source Comments (unrecognize d section and content) In the event this informatio n is protected by the Federal Confidentiality of Alcohol and Drug Abuse Patient Records regulations: The Federal rules restrict any use of the information to criminally investigate or prosecute any alcohol or drug abuse patient.[facility] the event this information is protected by the Federal Confidentiality of Alcohol and Drug Abuse Patient Records regulations: The Federal rules restrict any use of the information to criminally investigate or prosecute any alcohol or drug abuse patient.[facility] the event this information is protected by the Federal Confidentiality of Alcohol and Drug Abuse Patient Records regulations: The Federal rules restrict any use of the information to criminally investigate or prosecute any alcohol or drug abuse patient.[facility] Hospital[facility] the event this information is protected by the Federal Confidentiality of Alcohol and Drug Abuse Patient Records regulations: The Federal rules restrict any use of the information to criminally investigate or prosecute any alcohol or drug abuse patient.[facility] Reason for Visit (unrecogniz ed section and content) Reason Comments Discussion infertility Reason Comments Well Woman Reason Comments Ear Pain Right ear pain, dizz y and WILKINS - symptoms started at 1:00 am FOR RECORDS PERTAINING TO PATIENTS WHO ARE OR HAVE BEEN ENROLLED IN A CHEMICAL DEPENDENCY/SUBSTANCEABUSE PROGRAM, SOME INFORMATION MAY BE OMITTED. This clinical summary was aggregated from multiple sources. Caution should be exercised in using it in the provision of clinical care. This summary normalizes information from multiple sources, and as a consequence, information in this document may materially change the coding, format and clinical context of patient data. In addition, data may be omitted in some cases. CLINICAL DECISIONS SHOULD BE BASED ON THE PRIMARY CLINICAL RECORDS. [employer] [facility]. provides no warranty or guarantee of the accuracy or completeness of information in this document.
[2025-03-29 10:45] LABS: AST(SGOT) 22 U/L (<=31); Alanine Aminotransfer ALT/SGPT 16 U/L (<=34); Albumin, Serum 4.2 g/dL (3.5-5.0); Alkaline Phosphatase 81 U/L (35-104); Anion Gap 12 (5-15); BUN 8 mg/dL (4-19); BUN/Creat Ratio 10.7 RATIO (10-20); Calcium,Total 9.2 mg/dL (7.6-11.0); Carbon Dioxide 23.9 mmol/L (21.0-32.0); Chloride 103 mmol/L (98-108); Cholesterol 240 mg/dL (<=200); Globulin 3.2 g/dL (2.2-4.2); Glucose 111 mg/dL (70-99); Low Density Lipoprotein Calc. 173 mg/dL; Potassium 3.6 mmol/L (3.3-5.1); Triglycerides 154 mg/dL; Very Low Density Lipoprotein 31 mg/dL (5-40); cholesterol:hdl ratio screen 6.20
== END | disposition home or self-care (01) ==
LOC: MTLAB 07:27
PROVIDERS: PCP Family Medicine; Referring Provider Family Medicine; Visit Provider Family Medicine
DX: E66.9 Obesity, unspecified (principal); R03.0 Elevated blood-pressure reading, without diagnosis of hypertension
CPT/HCPCS: 36415; 80053; 80061; 84443